=== PATIENT | female | born 1995 | race Caucasian/White ===

== ENCOUNTER → 2020-04-14 13:27 | Outpatient (BNVA) | payer SELFPAY | PROVIDERS: Family Provider Nurse Practitioner Women's Health; PCP Nurse Practitioner Women's Health; Visit Provider Nurse Practitioner Women's Health | DX: E28.2 Polycystic ovarian syndrome (principal) | CPT/HCPCS: 84144 ==

== ENCOUNTER → 2020-04-27 08:44 | Outpatient (BNVA) | payer SELFPAY | PROVIDERS: Family Provider Nurse Practitioner Women's Health; PCP Nurse Practitioner Women's Health; Visit Provider Nurse Practitioner Women's Health | DX: Z32.00 Encounter for pregnancy test, result unknown (principal) | CPT/HCPCS: 84702 ==

== ENCOUNTER → 2020-05-17 14:00 | Outpatient (BNVA) | payer SELFPAY | PROVIDERS: Family Provider Nurse Practitioner Women's Health; PCP Nurse Practitioner Women's Health; Visit Provider Nurse Practitioner Women's Health | DX: E28.2 Polycystic ovarian syndrome (principal) | CPT/HCPCS: 84144 ==

== ENCOUNTER 2020-06-01 07:56 | Outpatient (CLI) | payer SELFPAY ==
--- NOTE | 2020-06-01 08:00 | FL_ITS ---
WS: [id number] HYSTEROSALPINGOGRAM The cervical opening was cannulated by the professor of fine art. Then under fluoroscopic guidance, water-solu ble contrast was injected in a retrograde fashion. CLINICAL INFORMATION: E28.2 Polycystic ovarian syndrome COMPARISON: None. FINDINGS: The uterus fills normally, with no evidence of contour abnormality, filling defect, septum, stricture , mass, or bicornuate configuration. The bilateral uterine tubes are normal and patent with normal ra pid spillage of contrast into the peritoneum. FLUOROSCOPY TIME: 0.2 minutes. FL/FL hysterosalpingography [id number] IMPRESSION: Normal hysterosalpingogram.
[2020-06-01] MEDS: iohexol 300 mg/mL 50 mL Btl VAGINAL (08:32)
--- NOTE | 2020-06-01 15:27 | PM.ACPR ---
Procedure/Consent Procedure Narrative: Radiologic procedure Date of procedure: 06/01/2020 Date of dictation: 06/01/2020 Procedural diagnosis: Infertility Procedure done: Placement of hysterosalpingogram catheter Physician: Dr. Carmita Obando Anesthesia: None Indication: To assess patency of fallopian tubes Complications: None, patient tolerated the procedure well PROCEDURE: The procedure was explained to the patient and verbal consent provided. Sterile speculum was placed in the vagina and the cervix was prepped with Betadine. The cervix was grasped with a single-tooth tenaculum. Using Omnipaque dye, the HSG catheter was primed. The catheter was inserted into the cervix and the speculum was removed. Fluoroscopy was performed by the radiologist. Omnipaque dye was injected into the endometrial cavity with normal filling of the cavity. Bilateral tubes appeared normal caliber with immediate spill of dye bilaterally. The tenaculum and catheter were removed. Patient tolerated the procedure well. Please see separate radiologist report for final interpretation. Followup appointment: She is to followup at her next scheduled appointment
== END 2020-06-01 07:57 | disposition home or self-care (01) ==
LOC: RAD 07:57
PROVIDERS: PCP Nurse Practitioner Women's Health; Visit Provider Obstetrics & Gynecology
DX: E28.2 Polycystic ovarian syndrome (principal)
CPT/HCPCS: 12345; 74740

== ENCOUNTER → 2020-06-15 09:56 | Outpatient (BNVA) | payer SELFPAY | PROVIDERS: PCP Nurse Practitioner Women's Health; Visit Provider Obstetrics & Gynecology | DX: E28.2 Polycystic ovarian syndrome (principal) | CPT/HCPCS: 84144 ==

== ENCOUNTER → 2020-07-15 10:20 | Outpatient (BNVA) | payer SELFPAY | PROVIDERS: PCP Nurse Practitioner Women's Health; Visit Provider Obstetrics & Gynecology | DX: E28.2 Polycystic ovarian syndrome (principal) | CPT/HCPCS: 84144 ==

== ENCOUNTER → 2020-09-13 11:48 | Outpatient (BNVA) | payer SELFPAY | PROVIDERS: PCP Nurse Practitioner Women's Health; Visit Provider Obstetrics & Gynecology | DX: R10.9 Unspecified abdominal pain (principal) | CPT/HCPCS: 81000 ==

== ENCOUNTER → 2020-09-17 11:55 | Outpatient (BNVA) | payer SELFPAY | PROVIDERS: PCP Nurse Practitioner Women's Health; Visit Provider Obstetrics & Gynecology | DX: E28.2 Polycystic ovarian syndrome (principal) | CPT/HCPCS: 84144 ==

== ENCOUNTER → 2020-10-18 16:00 | Outpatient (BNVA) | payer SELFPAY | PROVIDERS: PCP Nurse Practitioner Women's Health; Visit Provider Obstetrics & Gynecology | DX: E28.2 Polycystic ovarian syndrome (principal) | CPT/HCPCS: 84144 ==

== ENCOUNTER → 2020-11-03 08:15 | Outpatient (BNVA) | payer SELFPAY | PROVIDERS: PCP Nurse Practitioner Women's Health; Visit Provider Obstetrics & Gynecology | DX: Z34.90 Encounter for supervision of normal pregnancy, unspecified, unspecified trimester (principal) | CPT/HCPCS: 84702 ==

== ENCOUNTER → 2020-12-08 08:48 | Outpatient (BNVA) | payer MEDICAID, SELFPAY | PROVIDERS: PCP Nurse Practitioner Women's Health; Visit Provider Obstetrics & Gynecology | DX: Z34.01 Encounter for supervision of normal first pregnancy, first trimester (principal); E28.2 Polycystic ovarian syndrome | CPT/HCPCS: 80307; 81000; 82950; 85027; 86592; 86762; 86787; 86803; 86850; 86900; 87086; 87340; 87389; 87806 ==

== ENCOUNTER → 2020-12-21 09:14 | Outpatient (BNVA) | payer MEDICAID, SELFPAY | PROVIDERS: PCP Nurse Practitioner Women's Health; Visit Provider Obstetrics & Gynecology | DX: Z34.01 Encounter for supervision of normal first pregnancy, first trimester (principal); Z28.3 Underimmunization status; E28.2 Polycystic ovarian syndrome | CPT/HCPCS: 84315; 87491; 87591 ==

== ENCOUNTER → 2021-01-19 12:39 | Outpatient (BNVA) | payer OTHER, MEDICAID, SELFPAY | PROVIDERS: PCP Nurse Practitioner Women's Health; Visit Provider Obstetrics & Gynecology | DX: Z34.80 Encounter for supervision of other normal pregnancy, unspecified trimester (principal) | CPT/HCPCS: 81000 ==

== ENCOUNTER → 2021-04-18 09:58 | Outpatient (BNVA) | payer OTHER, MEDICAID, SELFPAY | PROVIDERS: PCP Nurse Practitioner Women's Health; Visit Provider Obstetrics & Gynecology | DX: Z34.90 Encounter for supervision of normal pregnancy, unspecified, unspecified trimester; Z28.3 Underimmunization status | CPT/HCPCS: 82950; 84315; 85027 ==

== ENCOUNTER 2021-04-20 22:19 | Outpatient (CLI) | payer OTHER, MEDICAID, SELFPAY ==
[2021-04-20 22:25] VITALS: BP 140/90; PULSE 117
[2021-04-20 22:43] VITALS: BP 118/73; PULSE 102
[2021-04-20 22:59] VITALS: BP 120/60; PULSE 102
[2021-04-20 23:01] VITALS: BMI 37.0
[2021-04-20 23:13] VITALS: BP 116/56; PULSE 97
[2021-04-20 23:28] VITALS: BP 122/65; PULSE 96
[2021-04-20 23:43] VITALS: BP 124/69; PULSE 93
[2021-04-21 00:04] LABS: Add Urine Microscopic? NO; Charge for UA Resulting for Rev
[2021-04-21 00:05] LABS: Basophils % 0.1 %; Eosinophils % 0.4 %; Hematocrit 32.1 % (37.0-47.0); Hemoglobin 10.5 g/dL (11.5-15.3); Lymphocytes # 2.6 10^3/uL (0.8-4.8); Mean Corpuscular HGB Conc 32.7 g/dL (30.0-36.0); Mean Corpuscular Hemoglobin 29.3 pg (28.0-34.0); Mean Corpuscular Volume 89.7 fl (81-99); Mean Platelet Volume 9.8 fL (7.4-10.4); Monocytes # 0.7 10^3/uL (0.2-0.9); Monocytes % 7.5 %; Neutrophils # 6.18 10^3/uL (1.8-7.7); Neutrophils % 64.6 %; Nucleated Red Blood Cells % 0 %; Platelet Count 196 10^3/cmm (130-400); Red Blood Count 3.58 10^6/uL (4.1-5.3); Red Cell Distribution Width 12.8 % (12.1-15.1); White Blood Count 9.6 10^3/uL (4.0-10.0)
[2021-04-21 00:07] LABS: Bilirubin Urine Neg (Negative); Blood Urine Neg (Negative); Glucose Urine UA 2+ (Normal); Ketones Urine 1+ (Negative); Leukocyte Esterase Urine Negative (Negative); Nitrate Urine Negative (Negative); Protein Urine Neg (Negative); Urine Appearance Clear (CLEAR); Urine Color Yellow (Yellow); Urobilinogen Urine Norm (Negative); pH Urine 7 (5-7)
[2021-04-21 00:13] VITALS: BP 111/59; PULSE 86
[2021-04-21 00:23] LABS: Urine Creatinine 67 mg/dL (28-217); Urine Protein Random 8 mg/dL
[2021-04-21 00:26] LABS: UPRO/UCREAT Ratio 0.12 mg/mg CR
[2021-04-21 00:28] VITALS: BP 113/59; PULSE 89
[2021-04-21 00:38] LABS: Alanine Aminotransferase < 5 U/L (0-33); Albumin Level 3.2 g/dL (3.5-5.2); Alkaline Phosphatase 90 IU/L (35-105); Anion Gap 12.7 (5-19); Aspartate Amino Transferase 8 U/L (0-32); Blood Urea Nitrogen 4 mg/dL (6-20); Calcium 8.8 mg/dL (8.5-10.5); Carbon Dioxide 22 mmol/L (22-29); Chloride 107 mmol/L (98-107); Globulin 2.8 g/dL (1.3-4.6); Glomerular Filtration Rate 268.9 mL/min (90-130); Glucose 118 mg/dL (65-115); Osmolality Calculated 284 mOsm/kg (285-295); Potassium 3.7 mmol/L (3.5-5.1); Sodium 138 mmol/L (136-145); Total Bilirubin 0.2 mg/dL (0.15-1.2); Uric Acid 3.2 mg/dL (2.4-5.7)
[2021-04-21 00:43] VITALS: BP 111/57; PULSE 85
[2021-04-21 00:58] VITALS: BP 109/64; PULSE 84
== END 2021-04-21 01:10 | disposition home or self-care (01) ==
LOC: OPOB 22:23 → OBGYN 22:23
PROVIDERS: PCP Nurse Practitioner Women's Health; Visit Provider Obstetrics & Gynecology
DX: O13.9 Gestational [pregnancy-induced] hypertension without significant proteinuria, unspecified trimester (principal); Z3A.00 Weeks of gestation of pregnancy not specified; H53.8 Other visual disturbances; R51.9 Headache, unspecified
CPT/HCPCS: 36415; 59025; 80053; 81003; 82570; 82951; 82952; 84156; 84550; 85025; 99211

== ENCOUNTER 2021-04-30 00:35 | Outpatient (CLI) | payer OTHER, MEDICAID, SELFPAY ==
[2021-04-30 00:50] VITALS: BP 119/74; PULSE 96
[2021-04-30 01:22] VITALS: BP 110/67; PULSE 110
[2021-04-30 01:28] VITALS: BP 110/67; PULSE 110
== END 2021-04-30 01:33 | disposition home or self-care (01) ==
LOC: OPOB 00:40 → OBGYN 00:41
PROVIDERS: PCP Nurse Practitioner Women's Health; Visit Provider Obstetrics & Gynecology
DX: O26.899 Other specified pregnancy related conditions, unspecified trimester (principal); Z3A.00 Weeks of gestation of pregnancy not specified; R10.10 Upper abdominal pain, unspecified
CPT/HCPCS: 59025; 99211

== ENCOUNTER → 2021-06-06 14:15 | Outpatient (BNVA) | payer OTHER, MEDICAID, SELFPAY | PROVIDERS: PCP Nurse Practitioner Women's Health; Visit Provider Obstetrics & Gynecology | DX: Z34.90 Encounter for supervision of normal pregnancy, unspecified, unspecified trimester (principal) | CPT/HCPCS: 84315; 87081 ==

== ENCOUNTER → 2021-06-21 08:13 | Outpatient (BNVA) | payer OTHER, MEDICAID, SELFPAY | PROVIDERS: PCP Nurse Practitioner Women's Health; Visit Provider Obstetrics & Gynecology | DX: Z34.90 Encounter for supervision of normal pregnancy, unspecified, unspecified trimester (principal) | CPT/HCPCS: 84315; 87635 ==

== ENCOUNTER 2021-06-23 13:00 | Inpatient (IN) | payer OTHER, MEDICAID, SELFPAY ==
[2021-06-22] VITALS (44 sets, daily range): BP systolic 124–171; BP diastolic 68–88; PULSE 90–123; TEMP 36.3; O2SAT 94–99; BMI 38.6
[2021-06-22 20:14] LABS: Basophils % 0.1 %; Eosinophils % 0.2 %; Hematocrit 36.7 % (37.0-47.0); Hemoglobin 11.8 g/dL (11.5-15.3); Lymphocytes # 2.2 10^3/uL (0.8-4.8); Lymphocytes % 19.4 %; Mean Corpuscular HGB Conc 32.2 g/dL (30.0-36.0); Mean Corpuscular Hemoglobin 28.6 pg (28.0-34.0); Mean Corpuscular Volume 89.1 fl (81-99); Mean Platelet Volume 11.2 fL (7.4-10.4); Monocytes # 0.6 10^3/uL (0.2-0.9); Neutrophils # 8.59 10^3/uL (1.8-7.7); Neutrophils % 74.9 %; Nucleated Red Blood Cells % 0 %; Platelet Count 214 10^3/cmm (130-400); Red Blood Count 4.12 10^6/uL (4.1-5.3); Red Cell Distribution Width 14.9 % (12.1-15.1); White Blood Count 11.5 10^3/uL (4.0-10.0)
[2021-06-22] MEDS: lactated ringers 1,000 ML 999 ML IV (20:15)
[2021-06-22 20:48] LABS: Glucose Point of Care 119 mg/dL (70-110)
--- NOTE | 2021-06-22 21:05 | P.HPUD_ITS ---
Labor & Delivery H&P Update Date of Procedure: June 22, 2021 Date H&P Performed: 06/21/21 H&P update information: I have reviewed H&P completed within last 30 days, I have examined patient prior to procedure, No changes to prior documentation and H&P is in [facility] EMR on date indicated Admission Diagnosis:
[2021-06-22] MEDS: oxytocin 30 UNIT/500 ML BAG IV (22:18)
[2021-06-22] MEDS: dextrose 5%-lactated ringers 1,000 ML 125 ML IV (22:19)
[2021-06-23] VITALS (193 sets, daily range): BP systolic 96–173; BP diastolic 46–106; PULSE 72–123; RESP 16–18; TEMP 36.2–36.9; O2SAT 89–100
[2021-06-23 01:05] LABS: Glucose Point of Care 101 mg/dL (70-110)
[2021-06-23] MEDS: dextrose 5%-lactated ringers 1,000 ML 125 ML IV ×2 (04:54→20:18)
[2021-06-23 05:08] LABS: Glucose Point of Care 110 mg/dL (70-110)
[2021-06-23 11:33] LABS: Glucose Point of Care 134 mg/dL (70-110)
[2021-06-23] MEDS: lactated ringers 1,000 ML 999 ML IV (13:52)
[2021-06-23 13:58] LABS: Glucose Point of Care 88 mg/dL (70-110)
[2021-06-23] MEDS: dextrose 5%-lactated ringers 1,000 ML 999 ML IV (14:30)
--- NOTE | 2021-06-23 15:03 | ANES.PAUD2 ---
Pre-Anesthetic Update Pre-Anesthetic Assessment: Date of Surgery/Procedure: 06/23/21 Any changes to Pre-Anesthetic Assessment?: No Labs Last 48hrs: Laboratory Results - last 48 hr 06/22/21 06/22/21 06/23/21 20:00 20:44 00:54 WBC 11.5 H RBC 4.12 Hgb 11.8 Hct 36.7 L MCV 89.1 MCH 28.6 MCHC 32.2 RDW 14.9 Plt Count 214 MPV 11.2 H Neut % (Auto) 74.9 Lymph % (Auto) 19.4 [place] % (Auto) 5.0 Eos % (Auto) 0.2 Baso % (Auto) 0.1 Neut # (Auto) 8.59 H Lymph # (Auto) 2.2 [place] # (Auto) 0.6 Eos # (Auto) 0.0 Baso # (Auto) 0.0 Nucleated RBC % (a uto) 0 Nucleated RBCs # 0.0 POC Glucose 119 H 101 06/23/21 06/23/21 06/23/21 04:54 11:16 13:30 WBC RBC Hgb Hct MCV MCH MCHC RDW Plt Count MPV Neut % (Auto) Lymph % (Auto) [place] % (Auto) Eos % (Auto) Baso % (Auto) Neut # (Auto) Lymph # (Auto) [place] # (Auto) Eos # (Auto) Baso # (Auto) Nucleated RBC % (a uto) Nucleated RBCs # POC Glucose 110 134 H 88 Vitals: Temperature 98.3 F 06/23/21 12:20 Temperature Source Oral 06/23/21 12:20 Pulse Rate 100 06/23/21 15:01 Respiratory Rate 18 06/23/21 12:20 Respiratory Effort Non-Labored 06/22/21 18:55 Respiratory Depth Normal 06/22/21 18:55 Respiratory Patter n 06/22/21 18:55 Blood Pressure 104/50 06/23/21 14:59 Pulse Oximetry 100 06/23/21 15:01 Oxygen Delivery Me thod 06/22/21 18:55 Exam: Pre-Anes Outpt Exam: alert, oriented x 3, clear to auscultation bilaterally and regular rate & rhythm Cardiac Studies: No Data to Display
--- NOTE | 2021-06-23 15:04 | P.ANES_ITS ---
Anesthesia Procedures Procedure/Date: 06/23/21 Epidural: Time Out Performed: Yes Consents Signed: Procedure Consent Consent: from patient, risks and benefits reviewed and patient agrees to proceed Lumbar Level: L4-L5 Epidural position: sitting Epidural procedure: sterile prep of area, 1% lidocaine to numb the area, 18 g needle, neg for parest hesia, test dose given, 1.5% xylocaine 1:200k epi, placed PCEA, no systemic response, sterile dressing applied and 0.2% Ropiavacaine @ mls/hr (13 mL/hr) Additional Comments: LORTS @ 9cm. Catheter advanced easily and secured @ 15 cm. 100 mcg Fentanyl added to 100 mL Ropivacaine infusion --> 1 mcg/mL.
[2021-06-23 15:17] LABS: Glucose Point of Care 115 mg/dL (70-110)
[2021-06-23 18:33] LABS: Glucose Point of Care 96 mg/dL (70-110)
[2021-06-23] MEDS: ondansetron 2 mg/ML SDV 2 mL 4 MG IVP (19:38)
--- NOTE | 2021-06-23 19:44 | PC.NURSE ---
FSE failing to trace, discontinued at this time. External monitors placed.
[2021-06-23 20:09] LABS: Glucose Point of Care 100 mg/dL (70-110)
--- NOTE | 2021-06-23 21:52 | PM.OBGYPN ---
LODE MINER Subjective Subjective: Interval history: I assumed care of this GDM on insulin currently being induced with pitocin d/t poor glycemic control at 1800. Pitocin turned off at 2000 for poor response and unchanged cervical status. Pt at this time is comfortable with her epidural and without complaints. Labor: Pain Control: epidural Dilation (cm): 4 Effacement (%): 50 Station: -3 Amniotic Membrane Status: Leaking (clear, large amount) Monitor Mode: Internal (IUPC) (placed without complication and with good pt tolerance) Contraction Frequency: 6 Contraction Duration: 60 Contraction Pattern: Irregular Contraction Intensity: Mild Uterine Tone Measurement: 30 Status: Category I Vitals/I&O/Wt Last Vital Signs Temp 98.5 F 06/24/21 08:40 Pulse 100 06/24/21 11:26 Resp 18 06/24/21 08:40 BP 115/61 06/24/21 11:26 Pulse Ox 100 06/23/21 15:16 06/23/21 06/24/21 06/24/21 22:59 06:59 14:59 Intake Total 970.603 / 2895.653 1100 / 3995.653 Output Total 1100 / 1100 700 / 1800 Balance -129.397 / 1795.653 400 / 2195.653 Weight last 48 hrs Weight 218 lb Physical Exam Narrative: EXAM NARRATIVE: SVE /-3 FHTs cat 1 Urinary Catheter Management^: [place]: Cath Placed During This Visit: yes Reason for Continuing Indwelling Catheter: Required Immobilization for Trauma or Surgery or Anesthesia Urinary Catheter Date of Insertion: 06/23/21 Urinary Catheter Time of Insertion: 15:10 Data : 06/22/21 20:00 A&P Assessment and plan (1) Gestational diabetes: cont fbs q 2 hrs with dosing and regular insulin as appropriate discontinue pitocin and give cytotec 25 q 4 hrs continue to moniter Status: Acute Qualifiers: Gestational diabetes mellitus control: insulin-controlled Trimester: third trimester Qualified Code(s): O24.414 - Gestational diabetes mellitus in , insulin controlled (2) Susceptible to varicella (non-immune), currently : vaccinate pp Status: Acute (3) Rubella non-immune status, antepartum: vaccinate pp Status: Acute (4) Clomid : Status: Acute Qualifiers: Trimester: third trimester Qualified Code(s): O09.03 - Supervision of with history of infertility, third trimester (5) Supervision of normal : Status: Acute Qualifiers: Normal : normal first Trimester: first trimester Qualified Code(s): Z34.01 - Encounter for supervision of normal first , first trimester Attestations Medical Necessity Statement*: with GDM on insulin currently being induced d/t poor glycemic control Coding Level of Care Code Acute Director Of Marketing [employer] for [facility] Fwd Diagnoses Gestational diabetes O24.414 Gestational diabetes mellitus control: insulin-controlled Trimester: third trimester Susceptible to varicella (non-immune), currently O09.899; Z28.3 Rubella non-immune status, antepartum O99.891; Z28.3 Clomid O09.03 Trimester: third trimester Supervision of normal Z34.01 Normal : normal first Trimester: first trimester
[2021-06-23] MEDS: miSOPROStol 100 mcg tablet 25 MCG PO (22:32)
[2021-06-23 22:45] LABS: Glucose Point of Care 106 mg/dL (70-110)
[2021-06-23] MEDS: calcium carbonate 500 mg Chew Tablet PO (22:49)
[2021-06-24] VITALS (76 sets, daily range): BP systolic 98–145; BP diastolic 48–101; PULSE 75–123; RESP 14–18; TEMP 36.1–37; O2SAT 95–99
[2021-06-24 00:51] LABS: Glucose Point of Care 107 mg/dL (70-110)
[2021-06-24] MEDS: miSOPROStol 100 mcg tablet 25 MCG PO (02:57)
[2021-06-24 03:11] LABS: Glucose Point of Care 113 mg/dL (70-110)
[2021-06-24] MEDS: dextrose 5%-lactated ringers 1,000 ML 125 ML IV ×2 (04:25→12:38)
[2021-06-24 04:32] LABS: Glucose Point of Care 102 mg/dL (70-110)
[2021-06-24 06:55] LABS: Glucose Point of Care 99 mg/dL (70-110)
[2021-06-24] MEDS: miSOPROStol 100 mcg tablet 25 MCG VAGINAL (08:36)
--- NOTE | 2021-06-24 10:35 | P.PN_ITS ---
LAST PUTTER AWAY Subjective Subjective: Interval history: Doing well, no complaints. Had third dose of cytotec at 0830. Blood sugar elevated at 163 2 hrs after breakfast. Otherwise bs have been within range. Labor: Station: -2 Amniotic Membrane Status: Leaking Monitor Mode: Internal (IUPC) Contraction Pattern: Irregular Uterine Tone Measurement: 10 Vitals/I&O/Wt Last Vital Signs Temp 98.5 F 06/24/21 08:40 Pulse 118 H 06/24/21 10:26 Resp 18 06/24/21 08:40 BP 111/66 06/24/21 10:26 Pulse Ox 100 06/23/21 15:16 06/23/21 06/24/21 06/24/21 22:59 06:59 14:59 Intake Total 970.603 / 2895.653 1100 / 3995.653 Output Total 1100 / 1100 700 / 1800 Balance -129.397 / 1795.653 400 / 2195.653 Weight last 48 hrs Weight 218 lb Physical Exam Narrative: EXAM NARRATIVE: SVE per nursing at 0830 4cm/60%/-2 VTX with clear fluid. FHT's Cat 1 with 140's baseline. Ctn q 4-6 min 25-35 mmHg via IUPC rashaun precious last night Urinary Catheter Management^: [place]: Cath Placed During This Visit: yes Reason for Continuing Indwelling Catheter: Required Immobilization for Trauma or Surgery or Anesthesia Urinary Catheter Date of Insertion: 06/23/21 Urinary Catheter Time of Insertion: 15:10 Data : 06/22/21 20:00 A&P Assessment and plan (1) Gestational diabetes: continue to check bs q 2 hrs and dose with regular insulin as appropriate Status: Acute Qualifiers: Gestational diabetes mellitus control: insulin-controlled Trimester: third trimester Qualified Code(s): O24.414 - Gestational diabetes mellitus in , insulin controlled (2) Susceptible to varicella (non-immune), currently : Vaccinate Status: Acute (3) Rubella non-immune status, antepartum: vaccinate Status: Acute (4) Clomid : Status: Acute Qualifiers: Trimester: third trimester Qualified Code(s): O09.03 - Supervision of with history of infertility, third trimester (5) Supervision of normal : Status: Acute Qualifiers: Normal : normal first Trimester: first trimester Qualified Code(s): Z34.01 - Encounter for supervision of normal first , first trimester Additional A&P Information Plan to recheck cervix at 1230 and restart pitocin at 2 miu, double to 8miu and then up by 2miu q 30 min Questions answered and both parents agree with POC Attestations Medical Necessity Statement*: induction for GDM on insulin not well controlled Coding Level of Care Code Acute Business Relationship Manager for Chg Fwd Diagnoses Gestational diabetes O24.414 Gestational diabetes mellitus control: insulin-controlled Trimester: third trimester Susceptible to varicella (non-immune), currently O09.899; Z28.3 Rubella non-immune status, antepartum O99.891; Z28.3 Clomid O09.03 Trimester: third trimester Supervision of normal Z34.01 Normal : normal first Trimester: first trimester
[2021-06-24 10:37] LABS: Glucose Point of Care 160 mg/dL (70-110)
[2021-06-24] MEDS: insulin nph human 100 units/1 mL 6 UNIT SUBCUT (11:04)
[2021-06-24] MEDS: acetaminophen 325 mg Tablet 650 MG PO (12:42)
[2021-06-24] MEDS: ondansetron 2 mg/ML SDV 2 mL 4 MG IVP (12:42)
[2021-06-24 13:16] LABS: Glucose Point of Care 96 mg/dL (70-110)
[2021-06-24 16:42] LABS: Glucose Point of Care 98 mg/dL (70-110)
[2021-06-24] MEDS: metoclopramide 5 mg/mL SDV 2 mL 10 MG IVP (17:44)
[2021-06-24] MEDS: famotidine 20 mg/2 mL INJ IVP (17:44)
[2021-06-24] MEDS: lactated ringers 1,000 ML 999 ML IV (17:44)
[2021-06-24] MEDS: citric acid-sodium citrate 30 mL UDC PO (17:44)
[2021-06-24] MEDS: azithromycin 500 MG in sodium chloride 0.9% 250 ML 250 MG IV (18:01)
--- NOTE | 2021-06-24 20:08 | PM.OP ---
Operative Report Date of procedure: June 24, 2021 Pre-operative diagnosis: 38 wk IUP, GDM not well controlled, Prolonged ROM, Failed induction Post-operative Diagnosis: same Procedure: Primary Low Cervical Transverse Section Surgeon: Yasmine Ayon D.O. EBL: 500 ml. Anesthesia: epidural Findings: viable male Pathology: none Procedure: After obtaining informed consent and answering all questions, Pt was taken to the operating room and placed in a supine position with a left lateral tilt. Epidural was bolused and she was prepped and draped in a sterile fashion. Indwelling elliott catheter was noted to be draining to gravity and plexipulses were on for vte prophylaxis. Level of the anesthesia was checked and deemed adequate. Scalpel blade was used to make a low pfannenstial incision two finger breadths above the pubic bone. This was carried down sharply to the rectus fascia. The subcutaneous tissue was bluntly dissected free of the fascia and the fascial incision was extended sharply with perez scissors in a lateral fashion. The fascia was freed from the underlying rectus muscle with perez scissors and bluntly in the midline. The peritoneum was bluntly entered and the bladder blade placed. A low transverse incision was made with a scalpel blade in the lower uterine segment until membranes were encountered, rupturing them with a return of clear fluid. The lower uterine segment incision was extended bluntly in a lateral fashion and the bladder blade removed. The vertex was delivered atraumatically. Baby boy cried on the operative field and was noted to be vigorous. Nose and mouth were suctioned superficially and the cord was clamped x 2 and cut, passing the baby off to nursery [facility]. The placenta was manually expressed and passed off the field. The uterus was exteriorized and wiped clear of debris with an open wet lap sponge. The hysterotomy was closed in a double layer with 0-vicryl in a running locking and then imbrucating fashion. Noting it to be hemostatic, the uterus was placed back in anatomic position and the posterior and lateral gutters were cleared of debris. The hysterotomy was hemostatic upon reinspection. The peritoneum was grossly reapproximated. The rectus muscle was hemostatic. The fascia was closed with 0-vicryl in a running fashion. The subcutaneous tissue was irrigated with normal saline, noted to be hemostatic, and closed with 2-0-plain gut in a running fashion. Skin was closed with 3-0-vicryl subcutaneously. Steristrips and sterile dressing were placed. Pt tolerated the procedure well and was taken to the recovery room with her baby. Both mom and baby were in stable condition.
--- NOTE | 2021-06-24 21:29 | PC.NURSE ---
Fundus right of midline. Due to positioning of elliott catheter in stat lock, not draining well. Stat lock released, urine began draining well. Fundus midline after bladder drained.
[2021-06-24] MEDS: oxyCODONE-APAP 5-325 mg Tablet PO (21:50)
[2021-06-25] VITALS (10 sets, daily range): BP systolic 106–131; BP diastolic 68–86; PULSE 97–133; RESP 15–18; TEMP 37.1–37.3; O2SAT 96–98
--- NOTE | 2021-06-25 00:25 | PC.NURSE ---
While RN in room administering glucose gel to , patient reports passing gas 2 times. Once while RN in room, and once before RN came into room.
[2021-06-25] MEDS: ketorolac 30 mg/mL INJ IVP (01:10)
--- NOTE | 2021-06-25 03:56 | PC.NURSE ---
Patient up to chair at 0120 and patient remains in the chair at this time. Tolerating well.
--- NOTE | 2021-06-25 06:41 | PC.NURSE ---
Patient up with RN to walk at 0510. Patient completed 4 laps and walked to nursery with significant other for infants bath. Patient tolerated very well.
[2021-06-25] MEDS: oxyCODONE-APAP 5-325 mg Tablet PO ×3 (06:48→19:56)
--- NOTE | 2021-06-25 08:01 | ANE.PACU2 ---
Inpatient post-anesthesia follow up: Airway intact: Yes Vital signs: Temperature 98.9 F Pulse Rate 133 Respiratory Rate 17 Blood Pressure 124/79 Pulse Oximetry 98 Oxygen Delivery Me thod Room Air Oxygen Flow Rate Fraction of Inspir ed Oxygen Hydration adequate: Yes Nausea and vomiting: No Pain level: 2 Mental status: Baseline
[2021-06-25 08:31] LABS: Hematocrit 29.3 % (37.0-47.0); Hemoglobin 9.2 g/dL (11.5-15.3); Mean Corpuscular HGB Conc 31.4 g/dL (30.0-36.0); Mean Corpuscular Hemoglobin 28.2 pg (28.0-34.0); Mean Corpuscular Volume 89.9 fl (81-99); Mean Platelet Volume 10.9 fL (7.4-10.4); Platelet Count 185 10^3/cmm (130-400); Red Blood Count 3.26 10^6/uL (4.1-5.3); Red Cell Distribution Width 14.3 % (12.1-15.1); White Blood Count 12.8 10^3/uL (4.0-10.0)
[2021-06-25] MEDS: ibuprofen 800 mg tablet PO ×3 (09:09→21:59)
[2021-06-25] MEDS: lanolin oint 7 gm 1 APPLIC TOPICAL (09:09)
[2021-06-25] MEDS: docusate sodium 100 mg Capsule PO ×2 (09:09→18:28)
[2021-06-25] MEDS: prenatal vitamin Capsule 1 CAP PO (09:10)
--- NOTE | 2021-06-25 12:59 | PM.OBGYPN ---
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 S/p primary unplanned c/s for prolonged ROM and failed induction, remote from delivery. Complications of were GDM on insulin not well controlled. Labor: Dilation (cm): 4 Effacement (%): 50 Station: -3 Amniotic Membrane Status: Leaking (clear, large amount) Monitor Mode: Internal (IUPC) Contraction Frequency: 6 Contraction Pattern: Regular Contraction Intensity: Mild Uterine Tone Measurement: 25 Status: Category I Vitals/I&O/Wt Last Vital Signs Temp 98.7 F 06/25/21 10:00 Pulse 118 H 06/25/21 10:00 Resp 16 06/25/21 10:00 BP 131/86 06/25/21 10:00 Pulse Ox 96 06/25/21 10:00 06/24/21 06/25/21 06/25/21 22:59 06:59 14:59 Intake Total 919.667 / 2027.000 500 / 2527.000 200 / 200 Output Total 2800 / 2800 1300 / 4100 420 / 420 Balance -1880.333 / -773.000 -800 / -1573.000 -220 / -220 Physical Exam Const: COMMON NORMALS: no acute distress and patient oriented x3 GENERAL APPEARANCE: cooperative and comfortable HENMT: COMMON NORMALS: normocephalic and moist oral mucous membranes HEAD & SCALP: normocephalic Resp: COMMON NORMALS: normal respiratory effort and No retractions EFFORT & INSPECTION: Yes able to speak in complete sentences Cardio: COMMON NORMALS: regular rhythm RATE: tachycardic (113) RHYTHM: regular rhythm : EXTERNAL FEMALE EXAM: Yes other (normal moderate lochia) Extremity: COMMON NORMALS: normal to inspection and full ROM GENERAL: Yes edema (mild bilateral le nonpitting) Neuro: COMMON NORMALS: patient oriented x3 Urinary Catheter Management^: [place]: Cath Placed During This Visit: yes, but has since been removed by the nurse Urethral Indwelling: No Reason for Continuing Indwelling Catheter: Decision to DC Catheter Urinary Catheter Date of Insertion: 06/23/21 Urinary Catheter Time of Insertion: 15:10 Date Urinary Catheter Removed: 06/25/21 Time Urinary Catheter Discontinued: 05:17 Data : 06/25/21 07:50 A&P Assessment and plan (1) Status post primary low transverse section: increase ambulation and remove dressing Status: Acute (2) Gestational diabetes: fasting blood sugar in am Status: Acute Qualifiers: Gestational diabetes mellitus control: insulin-controlled Trimester: third trimester Qualified Code(s): O24.414 - Gestational diabetes mellitus in , insulin controlled (3) Susceptible to varicella (non-immune), currently : vaccinate prior to discharge Status: Acute (4) Rubella non-immune status, antepartum: vaccinate prior to discharge Status: Acute (5) Clomid : Status: Acute Qualifiers: Trimester: third trimester Qualified Code(s): O09.03 - Supervision of with history of infertility, third trimester Attestations Medical Necessity Statement*: postoperative day 1 s/p primary Coding Level of Care Code Acute Family Mediator for Chg Fwd Diagnoses Status post primary low transverse section Z98.891 Gestational diabetes O24.414 Gestational diabetes mellitus control: insulin-controlled Trimester: third trimester Susceptible to varicella (non-immune), currently O09.899; Z28.3 Rubella non-immune status, antepartum O99.891; Z28.3 Clomid O09.03 Trimester: third trimester
--- NOTE | 2021-06-25 19:35 | PC.NURSE ---
JESSE tracker charting documented under Dr. Cast due to Dr. Urrutia not being in the list of performing physicians. Moriah Hart, RN Animation Artist notified of this issue.
[2021-06-26] VITALS (8 sets, daily range): BP systolic 96–140; BP diastolic 64–85; PULSE 88–106; RESP 16–18; TEMP 36.6–36.7; O2SAT 97
[2021-06-26] MEDS: oxyCODONE-APAP 5-325 mg Tablet PO ×4 (01:04→20:23)
[2021-06-26] MEDS: prenatal vitamin Capsule 1 CAP PO (07:44)
[2021-06-26] MEDS: ibuprofen 800 mg tablet PO ×3 (09:21→20:23)
[2021-06-26] MEDS: docusate sodium 100 mg Capsule PO ×2 (09:21→18:32)
--- NOTE | 2021-06-26 12:44 | P.PN_ITS ---
CONE BAKER MACHINE Subjective Subjective: Interval history: s/p primary c/s POD#2 doing well. ok, still needing help from nursing. Pain controlled and was able to sleep last night. Labor: Dilation (cm): 4 Effacement (%): 50 Station: -3 Amniotic Membrane Status: Leaking (clear, large amount) Monitor Mode: Internal (IUPC) Contraction Frequency: 6 Contraction Pattern: Regular Contraction Intensity: Mild Uterine Tone Measurement: 25 Status: Category I Post /CS: Patient comments OB post-: tolerating diet and flatus present [place] feeding status: exclusively breast feeding Vitals/I&O/Wt Last Vital Signs Temp 98.7 F 06/25/21 16:18 Pulse 88 06/26/21 04:08 Resp 18 06/26/21 07:44 BP 96/64 06/26/21 04:08 Pulse Ox 97 06/26/21 04:08 06/25/21 06/26/21 06/26/21 22:59 06:59 14:59 Output Total 520 / 940 Balance -520 / -740 Physical Exam Narrative: EXAM NARRATIVE: alert and no distress Const: GENERAL APPEARANCE: cooperative and comfortable ORIENTATIO N/CONSCIOUSNESS: Yes awake, Yes oriented to person, Yes oriented to place and Yes oriented to time HENMT: COMMON NORMALS: normocephalic HEAD & SCALP: normocephalic Eye: COMMON NORMALS: conjunctivae normal and no scleral icterus CONJUNCTIVA: Yes conjunctivae normal Neck/C-Spine: COMMON NORMALS: no JVD Lymph: LYMPHATIC: no lymphadenopathy noted Resp: COMMON NORMALS: normal respiratory effort and No use of accessory muscles EFFORT & INSPECTION: Yes able to speak in complete sentences Cardio: COMMON NORMALS: no JVD, regular rate and regular rhythm RATE: regular rate RHYTHM: regular rhythm GI: COMMON NORMALS: Soft to palpation and non-tender INSPECTION: Yes incision Inspection of incision: healing well and drainage (scant serosanguinous dried at the midline) PALPATION: Yes Soft to palpation : COMMON NORMALS: Yes normal appearance of the vagina UTERUS PALPATION: Yes Other OB uterine findings (uterus involuting well and nontender 2 fb below u. Lochia small.) Neuro: SENSORIUM/ORIENTATION: Yes oriented to person, Yes oriented to place and Yes oriented to time Psych: COMMON NORMALS: mental status grossly normal, Normal thought process present, cooperative and normal affect ATTITUDE: Yes calm and Yes engaged THOUGHT PROCESS: Normal thought process present Urinary Catheter Management^: [place]: Cath Placed During This Visit: yes, but has since been removed by the nurse Urethral Indwelling: No Reason for Continuing Indwelling Catheter: Decision to DC Catheter Urinary Catheter Date of Insertion: 06/23/21 Urinary Catheter Time of Insertion: 15:10 Date Urinary Catheter Removed: 06/25/21 Time Urinary Catheter Discontinued: 05:17 Data : 06/25/21 07:50 Attestations Medical Necessity Statement*: postoperative day 2 following primary C/S. Plan discharge tomorrow. Coding Level of Care Code Acute Vamp Stitcher for Dante Martinez
--- NOTE | 2021-06-26 13:53 | PC.NURSE ---
IS Pt given incentive spirometer and given instructions on how to use it. Pt. demonstrated correctly.
[2021-06-27 01:39] VITALS: RESP 16
[2021-06-27] MEDS: oxyCODONE-APAP 5-325 mg Tablet PO ×2 (01:39→07:37)
[2021-06-27 03:55] VITALS: BP 142/82; PULSE 102; RESP 16
[2021-06-27 04:07] VITALS: BP 130/80; RESP 16
[2021-06-27 07:37] VITALS: RESP 18
[2021-06-27] MEDS: prenatal vitamin Capsule 1 CAP PO (09:13)
[2021-06-27] MEDS: docusate sodium 100 mg Capsule PO (09:13)
[2021-06-27] MEDS: ibuprofen 800 mg tablet PO (09:13)
--- NOTE | 2021-06-27 09:13 | P.DS_ITS ---
Discharge Providers SECURITY PROFESSIONAL Date of Admission: 06/23/21 13:00 Date of Discharge: 06/27/21 Attending Provider at Admission: Carmita Kendall MD Attending Provider at Discharge: Carmita Kendall MD Primary Care Provider: SAUL Coy Diagnoses at Discharge Discharge Diagnosis (1) Status post primary low transverse section: Status: Acute Permanent problem details: pod#3 (2) Gestational diabetes: Status: Acute Permanent problem details: needs 2 hr GCT at 6 weeks pp Qualifiers: Gestational diabetes mellitus control: insulin-controlled Trimester: third trimester Qualified Code(s): O24.414 - Gestational diabetes mellitus in , insulin controlled (3) Susceptible to varicella (non-immune), currently : Status: Acute Permanent problem details: will instruct pt to go to the health department for vaccination (4) Rubella non-immune status, antepartum: Status: Acute Permanent problem details: vaccinate prior to discharge (5) Clomid : Status: Resolved Qualifiers: Trimester: third trimester Qualified Code(s): O09.03 - Supervision of with history of infertility, third trimester Reason for Visit Reason for Visit: induction of labor Hospital Course Hospital Course Admitted for induction at 38 weeks gestation for GDM on insulin not well controlled. She failed induction after pitocin with AROM, cytotec and pitocin again. Underwent primary c/s without complication for failed induction, p rolonged rom and remote from delivery. Pts postoperative course was uneventful and she was discharged in stable condition on POD#3. well and baby boy discharged home with mom. Vaccinated for rhubella prior to discharge and instructed to go to health department for varicella vaccination. Information Peripartum Data: Infant Delivery Method: Physical Exam Narrative: EXAM NARRATIVE: pain controlled, without complaints Const: COMMON NORMALS: no acute distress, patient oriented x3 and alert HENMT: COMMON NORMALS: normocephalic and moist oral mucous membranes HEAD & SCALP: normocephalic Eye: COMMON NORMALS: EOMs intact bilaterally, conjunctivae normal and no scleral icterus CONJUNCTIVA: Yes conjunctivae normal Neck/C-Spine: COMMON NORMALS: no JVD Lymph: LYMPHATIC: no lymphadenopathy noted Resp: COMMON NORMALS: normal respiratory effort and No retractions EFFORT & INSPECTION: Yes able to speak in complete sentences Cardio: COMMON NORMALS: no JVD and regular rate RATE: regular rate GI: COMMON NORMALS: Soft to palpation and non-tender INSPECTION: Yes incision Inspection of incision: healing well PALPATION: Yes Soft to palpation : EXTERNAL FEMALE EXAM: Yes other (small lochia) Extremity: COMMON NORMALS: normal to inspection and full ROM RIGHT LOWER EXTREMITY: Yes lower leg (mild nonpitting edema) LEFT LOWER EXTREMITY: Yes lower leg (mild nonpitting edema) Neuro: COMMON NORMALS: patient oriented x3 SENSORIUM/ORIENTATION: Yes alert Psych: COMMON NORMALS: mental status grossly normal, cooperative, normal affect and speech normal SPEECH: Yes normal speech Urinary Catheter Management^: [place]: Cath Placed During This Visit: yes, but has since been removed by the nurse Urethral Indwelling: No Reason for Continuing Indwelling Catheter: Decision to DC Catheter Urinary Catheter Date of Insertion: 06/23/21 Urinary Catheter Time of Insertion: 15:10 Date Urinary Catheter Removed: 06/25/21 Time Urinary Catheter Discontinued: 05:17 History History History 1 Term Miscarriages/Ectopic Living Children 0 Discharge Data Procedures Performed: primary low transverse section on 06/24/21 Vitals: Last Vital Signs Temp 98.0 F 06/26/21 23:00 Pulse 102 H 06/27/21 03:55 Resp 18 06/27/21 07:37 BP 130/80 06/27/21 04:07 Pulse Ox 97 06/26/21 04:08 Discharge Plan Discharge Patient Disposition: Home Condition: Stable Prescriptions: New oxycodone-acetaminophen 5-325 mg Tablet 1 - 2 tab PO Q4H PRN (Reason: Moderate To Severe Pain) Qty: 28 RF: 0 docusate sodium 100 mg Capsule 100 mg PO BID Qty: 60 RF: 0 Lanolin (HPA) 100 % Cream 1 applic topical PRN PRN (Reason: breast care) Qty: 7 RF: 0 ibuprofen 800 mg Tablet 800 mg PO TID Qty: 60 RF: 0 Discontinued Humulin N NPH Insulin KwikPen 100 unit/mL (3 mL) insulin pen 10 unit SUBCUT .QHS RF: 0 prenat.vits,rosanna,lft-rjjn-hulzg Tablet 1 tab PO DAILY RF: 0 (DME) blood-glucose meter [Blood Glucose Monitoring] Kit See Rx Instructions .Route Qty: 1 RF: 0 (DME) lancets-blood glucose strips 30 gauge combo pack See Rx Instructions .Route Qty: 420 RF: 6 Discharge Orders: Discharge Order (Routine); Ordered 06/27/21 Ordered By: Yasmine Ayon Referrals: Carmita Kendall MD [Physician] - 2 weeks Discharge Diet: Regular Discharge Activity: Limit activity as instructed Patient Instructions: Depression (DC), Your Baby (DC), and Nipple Soreness (DC), and Plugged Ducts (DC), and Your Diet (DC), Preeclampsia and Eclampsia After Delivery (GEN), Breast Care for the Mother (DC), OB WHC, OB Discharge Report, OB Care at Home, Opioid Safety, OB Home Care Activity Restrictions/Additional Instructions: no lifting more than baby in the car seat*Nothing per vagina x6 weeks *Reference vaginal delivery care notes. Discharge Attestations SECURITY PROFESSIONAL Time Spent in Discharge Care*: less than 30 min Specific Discharge Activities: Specific discharge activities: educating patient, educating and/or supporting family/caregiver and documenting/other paperwork Status at Discharge: Cognitive status at discharge: cognitively intact , Behavioral status at discharge: cooperative , Functional status at discharge: independent ambulation Overall status at discharge: patient is progressing back to baseline Coding Level of Care Code Acute Airline Counter Agent for Chg Fwd Diagnoses Status post primary low transverse section Z98.891 Gestational diabetes O24.414 Gestational diabetes mellitus control: insulin-controlled Trimester: third trimester Susceptible to varicella (non-immune), currently O09.899; Z28.3 Rubella non-immune status, antepartum O99.891; Z28.3 Clomid O09.03 Trimester: third trimester
[2021-06-27] MEDS: measles,mumps,rubella pf Vial (w/diluent) 0.5 ML SUBCUT (10:35)
--- NOTE | 2021-06-27 11:00 | PC.NURSE ---
MMR and Varicella Vaccine Patient signed MMR vaccination consent form and agreed to receive vaccine. Patient then declined vaccine and requested to wait a week or two and obtain MMR and Varicella immunizations through health department. This nurse discussed importance of receiving immunizations during period. Patient reported she would receive vaccines, just not at this time. This nurse wasted MMR vaccine.
[2021-06-27 12:00] VITALS: BP 146/90; PULSE 97; RESP 18; TEMP 36.8; O2SAT 99
== END 2021-06-27 11:15 | disposition home or self-care (01) | DRG 788 ==
PROVIDERS: Obstetrics & Gynecology; Admitting Provider Obstetrics & Gynecology; PCP Nurse Practitioner Women's Health; Visit Provider Obstetrics & Gynecology
PROC: (CPT 59514; principal; 2021-06-24 18:15)
DX: O61.0 Failed medical induction of labor (principal); O24.424 Gestational diabetes mellitus in childbirth, insulin controlled; Z3A.38 38 weeks gestation of pregnancy; Z37.0 Single live birth
CPT/HCPCS: 12345; 36415; 36416; 51702; 82962; 85025; 85027; 90707; 96372; J0456; J0690; J1815; J1885; J2274; J2370; J2405; J2765; J2795; J3010; J3490; J7030; J7050

== ENCOUNTER 2021-07-01 15:08 | Emergency (ER) | payer OTHER, MEDICAID, SELFPAY ==
[2021-07-01 15:41] VITALS: BP 167/112; PULSE 79; RESP 16; TEMP 36.8; O2SAT 100; BMI 35.6
--- NOTE | 2021-07-01 16:12 | XRR_ITS ---
PROCEDURE INFORMATION: Exam: XR Chest Exam date and time: 07/01/2021 4:12 PM Age: 25 years old Clinical indication: Cough and dyspnea; Additional info: Dyspnea/cough TECHNIQUE: Imaging protocol: XR of the chest. Views: 1 view. COMPARISON: No relevant prior studies available. FINDINGS: Lungs: Unremarkable. No consolidation. Pleural spaces: Unremarkable. No pleural effusion. No pneumothorax. Heart/Mediastinum: Borderline cardiomegaly. Bones/joints: Unremarkable. XR/XR chest 1V portable [id number] IMPRESSION: Borderline cardiomegaly. Radiation Dose CTDIVOL = (mGy): DLP = (mGy-cm)
--- NOTE | 2021-07-01 16:12 | ECG_ITS ---
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: : 1995 Requested By: Keanu Em Order Number: [id number] Emma MD: NEREYDA PALACIOS Measurements Intervals [place] Rate: 68 P: 30 MA: 146 QRS: 9 QRSD: 101 T: 31 QT: 380 QTc: 406 Interpretive Statements SINUS RHYTHM WITH SINUS ARRHYTHMIA INCOMPLETE RIGHT BUNDLE BRANCH BLOCK [90+ ms QRS DURATION, TERMINAL R IN V1/V2, 40+ ms S IN I/aVL/V4/V5/V6] VOLTAGE CRITERIA FOR LVH [MEETS CRITERIA IN ONE OF: R(aVL), S(V1), R(V5), R(V5/V6)+S(V1)] No previous ECG available for comparison Electronically Signed On 07-01-2021 23:56:57 CDT by NEREYDA PALACIOS [id number] f
--- NOTE | 2021-07-01 16:13 | W.ED.GENADLT ---
Documented by User: Keanu Horowitz DO 07/07/21 10:27 HPI - General Adult General: Chief complaint: General Medical Stated complaint: HTN: 1 WK AGO Time Seen by Provider: 07/01/21 15:45 History of Present Illness: HPI narrative: 25-year-old female presents emergency room with elevated blood pressure. Blood pressures at home within the 160s systolic range. 1 week ago she had a . She did have gestational diabetes which was treated with insulin but she did not have any gestational hypertension she has been taking ibuprofen postoperatively for pain. She has had some headaches and scotomata as well. Onset (ago): hour(s) Location: head Radiation: non-radiation Severity: mild Quality: aching Relieving factors: none Exacerbating factors: none Associated symptoms: Reports malaise and nausea; Deny chest pain, confusion, cough, diaphoresis, decreased appetite, dyspnea, fevers/chills, headache(s), rash, palpitations, seizures, short of breath, syncope, vomiting or weakness Treatments prior to arrival: none Review of Systems Const: Reports: malaise; Denies: diaphoresis ENMT: Denies: throat pain, ear or mastoid pain, nasal discharge or nasal congestion Card: Denies: chest pain, palpitations or syncope Resp: Denies: dyspnea GI: Reports: nausea; Denies: vomiting : Denies: flank pain, difficulty voiding, dysuria, urinary frequency or urinary urgency Skin/Breast: Denies: rash Neuro: Denies: headache(s) or confusion PFSH ED PFSH: Medical History Infertility 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 PMD: none PCOS (polycystic ovarian syndrome) Diagnosed at the age of 22 based on irregular cycles and signs of elevated testosterone Surgical History No history of previous surgery Family History Grandmother Stroke Paternal Heart disease paternal Denies family history of Colon cancer Ovarian cancer Diabetes Hyperlipidemia Breast cancer Hypertension Uterine cancer Thyroid condition Physical Exam Const: COMMON NORMALS: no acute distress GENERAL APPEARANCE: cooperative and comfortable ORIENTATION/CONSCIOUSNESS: Yes awake, Yes oriented to person, Yes oriented to place and Yes oriented to time HENMT: COMMON NORMALS: normocephalic, atraumatic, hearing grossly normal bilaterally, external ears normal, EAC's normal, TM's normal bilaterally, Normal nasal mucous membranes and turbinates present, moist oral mucous membranes and oropharynx normal HEAD & SCALP: normocephalic and atraumatic NOSE: Normal nasal mucous membranes and turbinates present EXTERNAL EAR: Yes external ears normal EXTERNAL AUDITORY CANAL: EAC's normal TYMPANIC MEMBRANE: TM's normal bilaterally Eye: COMMON NORMALS: Equal, round and reactive pupils present, EOMs intact bilaterally, conjunctivae normal and no scleral icterus CONJUNCTIVA: Yes conjunctivae normal PUPIL: Yes Equal, round and reactive pupils present Neck/C-Spine: COMMON NORMALS: no JVD Resp: COMMON NORMALS: normal respiratory effort, No retractions, No use of accessory muscles and clear to auscultation bilaterally AUSCULTATION: clear to auscultation bilaterally Cardio: COMMON NORMALS: no JVD, regular rate, regular rhythm and No murmurs present (Cardio) RATE: regular rate RHYTHM: regular rhythm GI: COMMON NORMALS: Soft to palpation and No hepatosplenomegaly present AUSCULTATION: Yes normoactive bowel sounds PALPATION: Yes Soft to palpation, No Tenderness to palpation present (GI), No Guarding due to palpation present (GI) and Yes No hepatosplenomegaly present Extremity: COMMON NORMALS: normal to inspection, capillary refill normal, no clubbing, cyanosis or edema, no calf tenderness and no pedal edema Neuro: SENSORIUM/ORIENTATION: Yes oriented to person, Yes oriented to place and Yes oriented to time Skin: COMMON NORMALS: no rashes or lesions noted GENERAL SKIN EXAM: no rashes or lesions noted Course Vital Signs: Vital signs: Vital Signs Temperature 98.2 F 07/01/21 21:17 Pulse Rate 79 07/01/21 21:17 Respiratory Rate 16 07/01/21 21:17 Blood Pressure 119/82 07/01/21 21:17 Pulse Oximetry 100 07/01/21 21:17 MDM - General Adult MDM Narrative: Medical decision making narrative: Care signed out to Dr. Bello at change of shift see his note for final diagnosis and disposition. Lab Data: Labs: Lab Results 07/01/21 07/01/21 07/01/21 18:10 18:10 19:10 WBC 8.8 10^3/uL 10^3/ uL (4.0-10.0) RBC 4.30 10^6/uL 10^6 /uL (4.1-5.3) Hgb 12.3 g/dL g/dL (11.5-15.3) Hct 37.6 % % (37.0-47.0) MCV 87.4 fl fl (81-99) MCH 28.6 pg pg (28.0-34.0) MCHC 32.7 g/dL g/dL (30.0-36.0) RDW 14.0 % % (12.1-15.1) Plt Count 365 10^3/cmm 10^3 /cmm (130-400) MPV 9.1 fL fL (7.4-10.4) Neut % (Auto) 65.6 % % Lymph % (Auto) 25.9 % % [place] % (Auto) 5.2 % % Eos % (Auto) 2.2 % % Baso % (Auto) 0.2 % % Neut # (Auto) 5.75 10^3/uL 10^3 /uL (1.8-7.7) Lymph # (Auto) 2.3 10^3/uL 10^3/ uL (0.8-4.8) [place] # (Auto) 0.5 10^3/uL 10^3/ uL (0.2-0.9) Eos # (Auto) 0.2 10^3/uL 10^3/ uL (0.0-0.8) Baso # (Auto) 0.0 10^3/uL 10^3/ uL (0.0-0.1) Nucleated RBC % (a uto) 0 % % Nucleated RBCs # 0.0 /100WBC /100W BC Sodium 145 mmol/L mmol/L (136-145) Potassium 4.0 mmol/L mmol/L (3.5-5.1) Chloride 108 mmol/L H mmol /L (98-107) Carbon Dioxide 24 mmol/L mmol/L (22-29) Anion Gap 17.0 (5-19) BUN 8 mg/dL mg/dL (6-20) Creatinine 0.4 mg/dL L mg/dL (0.5-0.9) GFR Calculation 192.9 mL/min H mL /min (90-130) Glucose 81 mg/dL mg/dL (65-115) Calculated Osmolal ity 297 mOsm/kg H mOs m/kg (285-295) Calcium 9.5 mg/dL mg/dL (8.5-10.5) Total Bilirubin 0.2 mg/dL mg/dL (0.15-1.2) AST 29 U/L U/L (0-32) ALT 15 U/L U/L (0-33) Alkaline Phosphata se 130 IU/L H IU/L (35-105) Total Protein 7.0 g/dL g/dL (6.6-8.7) Albumin 3.7 g/dL g/dL (3.5-5.2) Globulin 3.3 g/dL g/dL (1.3-4.6) Urine Color Yellow (Yellow) Urine Appearance Clear (CLEAR) Urine pH 7 (5-7) Ur Specific Gravit y 1.005 (1.005-1.030) Urine Protein Neg (Negative) Urine Glucose (UA) Norm (Normal) Urine Ketones Negative (Negative) Urine Blood 3+ H (Negative) Urine Nitrate Negative (Negative) Urine Bilirubin Neg (Negative) Urine Urobilinogen Norm mg/dL mg/dL (Negative) Ur Leukocyte Cierra ase Negative (Negative) Urine RBC 25-40 /hpf H /hpf (0-2) Urine WBC 0-4 /hpf H /hpf (0-5) Ur Squamous Epith Cells 15-25 /hpf H /hpf (0-5) Amorphous Sediment Not Reportable Urine Bacteria 1+ /hpf H /hpf (NONE) Discharge Plan Discharge Patient Disposition: Home Clinical Impression: Hypertension Qualifiers: Hypertension type: primary hypertension Qualified Code(s): I10 - Essential (primary) hypertension Condition: Stable Prescriptions: No Action docusate sodium 100 mg capsule 100 mg PO BID PRNRF: 0 ibuprofen 800 mg tablet 800 mg PO TID PRNRF: 0 Lanolin (HPA) 100 % Cream 1 applic topical PRN PRN (Reason: breast care) Qty: 7 RF: 0 oxycodone-acetaminophen 5-325 mg Tablet 1 - 2 tab PO Q4H PRN (Reason: Moderate To Severe Pain) Qty: 28 RF: 0 Discharge Orders: Discharge ED (Routine); Ordered 07/01/21 Ordered By: Jamie Bello Referrals: Kristie Trevizo APN, SAUL [Primary Care Provider] - 4-7 days (as scheduled) Patient Instructions: Hypertension (ED), Opioid Safety Activity Restrictions/Additional Instructions: Continue to check your blood pressures twice daily. If pressures remain above 150/90, start the medication you were prescribed. See your doctor Sunday as scheduled. They may want to check your urine again for protein. Return for any symptomatic hypertension such as chest discomfort, trouble breathing, headaches, dizziness, other concerning symptoms. 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 PMD: none PCOS (polycystic ovarian syndrome) Diagnosed at the age of 22 based on irregular cycles and signs of elevated testosterone Surgical History No history of previous surgery Family History Grandmother Stroke Paternal Heart disease paternal Denies family history of Colon cancer Ovarian cancer Diabetes Hyperlipidemia Breast cancer Hypertension Uterine cancer Thyroid condition Course Vital Signs: Vital signs: Vital Signs Temperature 98.2 F 07/01/21 21:17 Pulse Rate 79 07/01/21 21:17 Respiratory Rate 16 07/01/21 21:17 Blood Pressure 119/82 07/01/21 21:17 Pulse Oximetry 100 07/01/21 21:17 MDM - General Adult MDM Narrative: Medical decision making narrative: 25-year-old female checked out to me by Dr. Horowitz at shift change. This young lady has had some problems with blood pressures. She is 1 week . She did not have -induced hypertension or preeclampsia. She has had no lower extremity swelling. Her urine protein is still negative. Her laboratory is benign. Pressure has come down here after labetalol. She has been attempting to breast-feed. She will be placed on propranolol for hypertension control if needed. She will check her blood pressures twice a day. If she returns to normal blood pressure kate, medication can be stopped. She has an appointment on Sunday with her manager search. I suggested her urine be checked again for protein at that point. Lab Data: Labs: Lab Results 07/01/21 07/01/21 07/01/21 18:10 18:10 19:10 WBC 8.8 10^3/uL 10^3/ uL (4.0-10.0) RBC 4.30 10^6/uL 10^6 /uL (4.1-5.3) Hgb 12.3 g/dL g/dL (11.5-15.3) Hct 37.6 % % (37.0-47.0) MCV 87.4 fl fl (81-99) MCH 28.6 pg pg (28.0-34.0) MCHC 32.7 g/dL g/dL (30.0-36.0) RDW 14.0 % % (12.1-15.1) Plt Count 365 10^3/cmm 10^3 /cmm (130-400) MPV 9.1 fL fL (7.4-10.4) Neut % (Auto) 65.6 % % Lymph % (Auto) 25.9 % % [place] % (Auto) 5.2 % % Eos % (Auto) 2.2 % % Baso % (Auto) 0.2 % % Neut # (Auto) 5.75 10^3/uL 10^3 /uL (1.8-7.7) Lymph # (Auto) 2.3 10^3/uL 10^3/ uL (0.8-4.8) [place] # (Auto) 0.5 10^3/uL 10^3/ uL (0.2-0.9) Eos # (Auto) 0.2 10^3/uL 10^3/ uL (0.0-0.8) Baso # (Auto) 0.0 10^3/uL 10^3/ uL (0.0-0.1) Nucleated RBC % (a uto) 0 % % Nucleated RBCs # 0.0 /100WBC /100W BC Sodium 145 mmol/L mmol/L (136-145) Potassium 4.0 mmol/L mmol/L (3.5-5.1) Chloride 108 mmol/L H mmol /L (98-107) Carbon Dioxide 24 mmol/L mmol/L (22-29) Anion Gap 17.0 (5-19) BUN 8 mg/dL mg/dL (6-20) Creatinine 0.4 mg/dL L mg/dL (0.5-0.9) GFR Calculation 192.9 mL/min H mL /min (90-130) Glucose 81 mg/dL mg/dL (65-115) Calculated Osmolal ity 297 mOsm/kg H mOs m/kg (285-295) Calcium 9.5 mg/dL mg/dL (8.5-10.5) Total Bilirubin 0.2 mg/dL mg/dL (0.15-1.2) AST 29 U/L U/L (0-32) ALT 15 U/L U/L (0-33) Alkaline Phosphata se 130 IU/L H IU/L (35-105) Total Protein 7.0 g/dL g/dL (6.6-8.7) Albumin 3.7 g/dL g/dL (3.5-5.2) Globulin 3.3 g/dL g/dL (1.3-4.6) Urine Color Yellow (Yellow) Urine Appearance Clear (CLEAR) Urine pH 7 (5-7) Ur Specific Gravit y 1.005 (1.005-1.030) Urine Protein Neg (Negative) Urine Glucose (UA) Norm (Normal) Urine Ketones Negative (Negative) Urine Blood 3+ H (Negative) Urine Nitrate Negative (Negative) Urine Bilirubin Neg (Negative) Urine Urobilinogen Norm mg/dL mg/dL (Negative) Ur Leukocyte Cierra ase Negative (Negative) Urine RBC 25-40 /hpf H /hpf (0-2) Urine WBC 0-4 /hpf H /hpf (0-5) Ur Squamous Epith Cells 15-25 /hpf H /hpf (0-5) Amorphous Sediment Not Reportable Urine Bacteria 1+ /hpf H /hpf (NONE) Discharge Plan Discharge Patient Disposition: Home Clinical Impression: Hypertension Qualifiers: Hypertension type: primary hypertension Qualified Code(s): I10 - Essential (primary) hypertension Condition: Stable Prescriptions: No Action docusate sodium 100 mg capsule 100 mg PO BID PRNRF: 0 ibuprofen 800 mg tablet 800 mg PO TID PRNRF: 0 Lanolin (HPA) 100 % Cream 1 applic topical PRN PRN (Reason: breast care) Qty: 7 RF: 0 oxycodone-acetaminophen 5-325 mg Tablet 1 - 2 tab PO Q4H PRN (Reason: Moderate To Severe Pain) Qty: 28 RF: 0 Discharge Orders: Discharge ED (Routine); Ordered 07/01/21 Ordered By: Jamie Bello Referrals: Kristie Trevizo APN, SAUL [Primary Care Provider] - 4-7 days (as scheduled) Patient Instructions: Hypertension (ED), Opioid Safety Activity Restrictions/Additional Instructions: Continue to check your blood pressures twice daily. If pressures remain above 150/90, start the medication you were prescribed. See your doctor Sunday as scheduled. They may want to check your urine again for protein. Return for any symptomatic hypertension such as chest discomfort, trouble breathing, headaches, dizziness, other concerning symptoms. Coding Level of Care Code ED Forestry Tree Pruner for Dante Fwd Exam Comprehensive
[2021-07-01 18:56] VITALS: BP 149/97
[2021-07-01 19:17] LABS: Basophils % 0.2 %; Eosinophils # 0.2 10^3/uL (0.0-0.8); Eosinophils % 2.2 %; Hematocrit 37.6 % (37.0-47.0); Hemoglobin 12.3 g/dL (11.5-15.3); Lymphocytes # 2.3 10^3/uL (0.8-4.8); Lymphocytes % 25.9 %; Mean Corpuscular HGB Conc 32.7 g/dL (30.0-36.0); Mean Corpuscular Hemoglobin 28.6 pg (28.0-34.0); Mean Corpuscular Volume 87.4 fl (81-99); Mean Platelet Volume 9.1 fL (7.4-10.4); Monocytes # 0.5 10^3/uL (0.2-0.9); Monocytes % 5.2 %; Neutrophils # 5.75 10^3/uL (1.8-7.7); Neutrophils % 65.6 %; Nucleated Red Blood Cells % 0 %; Platelet Count 365 10^3/cmm (130-400); White Blood Count 8.8 10^3/uL (4.0-10.0)
[2021-07-01 19:34] LABS: Alanine Aminotransferase 15 U/L (0-33); Albumin Level 3.7 g/dL (3.5-5.2); Alkaline Phosphatase 130 IU/L (35-105); Aspartate Amino Transferase 29 U/L (0-32); Blood Urea Nitrogen 8 mg/dL (6-20); Calcium 9.5 mg/dL (8.5-10.5); Carbon Dioxide 24 mmol/L (22-29); Chloride 108 mmol/L (98-107); Globulin 3.3 g/dL (1.3-4.6); Glomerular Filtration Rate 192.9 mL/min (90-130); Glucose 81 mg/dL (65-115); Osmolality Calculated 297 mOsm/kg (285-295); Sodium 145 mmol/L (136-145); Total Bilirubin 0.2 mg/dL (0.15-1.2)
[2021-07-01 19:47] LABS: Specific Gravity, Urine 1.005 (1.005-1.030); Urine Appearance Clear (CLEAR); Urine Color Yellow (Yellow); pH Urine 7 (5-7)
[2021-07-01 19:48] LABS: Add Urine Microscopic? YES; Bilirubin Urine Neg (Negative); Blood Urine 3+ (Negative); Glucose Urine UA Norm (Normal); Ketones Urine Negative (Negative); Leukocyte Esterase Urine Negative (Negative); Nitrate Urine Negative (Negative); Protein Urine Neg (Negative); Urobilinogen Urine Norm (Negative)
[2021-07-01 19:53] LABS: Add Urine Culture? No; Bacteria Urine 1+ /hpf; RBC Urine 25-40 /hpf (0-2); Squamous Epithelial Cell Urine 15-25 /hpf (0-5); WBC Urine 0-4 /hpf (0-5)
[2021-07-01 21:17] VITALS: BP 119/82; PULSE 79; RESP 16; TEMP 36.8; O2SAT 100
== END 2021-07-01 21:10 | disposition home or self-care (01) ==
PROVIDERS: Family Medicine; Emergency Provider Emergency Medicine; PCP Nurse Practitioner Women's Health
DX: I10 Essential (primary) hypertension (principal)
CPT/HCPCS: 71045; 80053; 81001; 85025; 93005; 99283

== ENCOUNTER → 2021-08-05 10:34 | Outpatient (BNVA) | payer OTHER, MEDICAID, SELFPAY | PROVIDERS: PCP Nurse Practitioner Women's Health; Visit Provider Obstetrics & Gynecology | DX: Z12.4 Encounter for screening for malignant neoplasm of cervix (principal) | CPT/HCPCS: 88175 ==

== ENCOUNTER 2021-10-05 13:00 | Outpatient (CLI) | payer OTHER, MEDICAID, SELFPAY ==
--- NOTE | 2021-10-05 13:07 | ECG_ITS ---
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 Measurements Intervals [place] Rate: 78 P: 35 [place]: 156 QRS: 3 QRSD: 101 T: 15 QT: 364 QTc: 416 Interpretive Statements SINUS RHYTHM INCOMPLETE RIGHT BUNDLE BRANCH BLOCK [90+ ms QRS DURATION, TERMINAL R IN V1/V2, 40+ ms S IN I/aVL/V4/V5/V6] VOLTAGE CRITERIA FOR LVH [MEETS CRITERIA IN ONE OF: R(aVL), S(V1), R(V5), R(V5/V6)+S(V1)] Compared to ECG 07/01/2021 16:56:46 Sinus arrhythmia no longer present Electronically Signed On 10-05-2021 19:38:53 INSOLVENCY PRACTITIONER by Jovita Hua M.D. [id number]
== END 2021-10-05 13:01 | disposition home or self-care (01) ==
PROVIDERS: Visit Provider Obstetrics & Gynecology
DX: O16.5 Unspecified maternal hypertension, complicating the puerperium (principal); I45.19 Other right bundle-branch block
CPT/HCPCS: 93005

== ENCOUNTER → 2022-04-04 13:29 | Outpatient (BNVA) | payer OTHER, MEDICAID, SELFPAY | PROVIDERS: Visit Provider Obstetrics & Gynecology | DX: R39.9 Unspecified symptoms and signs involving the genitourinary system (principal) | CPT/HCPCS: 81000; 87086 ==

== ENCOUNTER → 2022-08-08 16:58 | Outpatient (BNVA) | payer OTHER, MEDICAID, SELFPAY | PROVIDERS: Visit Provider Nurse Practitioner Family | DX: E66.9 Obesity, unspecified (principal); Z86.32 Personal history of gestational diabetes; E28.2 Polycystic ovarian syndrome; E88.81 Metabolic syndrome and other insulin resistance | CPT/HCPCS: 80053; 80061; 83036; 84443 ==

== ENCOUNTER → 2023-01-25 07:32 | Day surgery (SDC) | payer OTHER, SELFPAY ==
[2023-01-24 09:37] VITALS: BMI 26.6
[2023-01-25] VITALS (11 sets, daily range): BP systolic 96–141; BP diastolic 54–91; PULSE 82–112; RESP 16–24; TEMP 36.1–37.1; O2SAT 95–100
[2023-01-25] MEDS: sodium chloride 0.9% 1,000 ML 30 ML IV (07:55)
[2023-01-25 08:19] LABS: OR HCG Qualitative Urine Negative (Negative)
--- NOTE | 2023-01-25 08:38 | ANES.PREANE2 ---
Pre-Anesthetic Assessment Height/Weight: Height 1.6 m Weight 70.307 kg Temp Pulse Resp BP Pulse Ox O2 Del Method 97.9 F 102 H 18 134/91 96 Room Air 01/25/23 07:46 01/25/23 07:46 01/25/23 07:46 01/25/23 07:46 01/25/23 07:46 01/25/23 07:46 Preop Diagnosis: Tonsillar hypertrophy with asymmetry right side great than left. Operation Date: 01/25/23 09:20 Proposed Procedures p 76574 - tonsillectomy , J35.8, J35.8(Not Applicable) - Cipriano Trammell MD Familial anesthetic complications: None Was Beta Otf taken within 24 hours: N/A Was Clonidine taken within 24 hours: N/A Last intake: Intake Last Liquid Date 01/24/23 Last Liquid Time 21:30 Last Solid Date 01/24/23 Last Solid Time 21:30 Social No alcohol and No tobacco Airway Mallampati: Class II Dentition: full Metabolic hx gestational DM PCOS Metabolic Syndrome Anesthetic Plan ASA status: 2 Anesthesia: General Risk of > 500 ml blood loss (7ml/kg in children): No Medications/Allergies Home Medications Medication Instructions Recorded Confirmed Last Taken Type tirzepatide 10 mg/0.5 mL 10 mg (0.5 mL) SUBCUT .weekly 12 01/23/23 01/25/23 12/28/22 Rx subcutaneous pen injector weeks #6 mL (Mounjaro) Allergies Allergy/AdvReac Type Severity Reaction Status Date / Time No Known Allergies Allergy Verified 01/25/23 07:40 Current Medications Generic Name Dose Route Start Last Admin Trade Name Freq PRN Reason Stop Dose Admin Sodium Chloride 1,000 mls @ 30 mls/hr 01/25/23 07:45 01/25/23 07:55 Sodium Chloride 0.9% IV 01/26/23 07:44 30 mls/hr .Q24H FLORIN Administration PFSH Anesthesia Medical History Infertility 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 PMD: Jessi Shi NP PCOS (polycystic ovarian syndrome) Diagnosed at the age of 22 based on irregular cycles and signs of elevated testosterone Surgical History Previous delivery affecting , antepartum 06/24/2021 ---primary low transverse delivery for arrest of labor by Dr. [place] [facility] [place] Family History Grandmother Stroke Paternal Heart disease paternal Denies family history of Colon cancer Ovarian cancer Diabetes Hyperlipidemia Breast cancer Hypertension Uterine cancer Thyroid condition Social History Substance/Drug Use: never Data Anesthesia Cardiac Studies: No Data to Display
--- NOTE | 2023-01-25 08:51 | W.PM.OPSUD ---
Surgery/Procedure H&P Update DATE OF PROCEDURE: January 25, 2023 DATE H&P PERFORMED: 01/15/23 H&P UPDATE INFORMATION: I have reviewed H&P completed within last 30 days, I have examined patient prior to procedure and No changes to prior documentation CHANGES TO PREVIOUS DOCUMENTATION: No changes PREOP DIAGNOSIS: Tonsillar hypertrophy with asymmetry right side great than left. PRIMARY INDICATION FOR PROCEDURE: Tonsillar hypertrophy with asymmetry right side greater than the left. PLANNED PROCEDURE: Operation Date: 01/25/23 09:20 Proposed Procedures p 13115 - tonsillectomy , J35.8, J35.8(Not Applicable) - Cipriano Trammell MD
[2023-01-25] MEDS: midazolam 1 mg/mL INJ 2 mL 2 MG IVP (09:01)
[2023-01-25] MEDS: ceFAZolin 2,000 MG in sodium chloride 0.9% (plus) 50 ML 100 MG IV (09:50)
[2023-01-25] MEDS: oxymetazoline 0.05% Nasal Spray 15 mL 2 SPRAY NOSTRIL-B (10:12)
--- NOTE | 2023-01-25 10:28 | P.OP_ITS ---
Operative Report Date of procedure: January 25, 2023 Pre-op diagnosis: Preop Diagnosis Tonsillar hypertrophy with asymmetry right side great than left. Post-op diagnosis: Same Post-op findings: Tonsil stones bilaterally. Irregular lobulated right tonsil enlarged compared to left. Procedure done: Tonsillectomy Implants: No implants Specimens removed/disposition: Tonsils Pathology: Tonsils sent fresh Surgeon: Cipriano Trammell MD Anesthesia: General Estimated blood loss: 10 mL Complications: No complications encountered Findings: Tonsils with stones bilaterally. Left tonsil smaller than right. Right tonsil lobulated and irregular. Brief History: 27-year-old female patient who has had a problem with a sensation in the throat causing her to cough and clear. She has asymmetry of the right tonsil with a lobulation extending medially. As result this patient is being brought to the operating room at this time to undergo tonsillectomy for biopsy purposes. The procedure its risks and complications were explained in detail in the office setting. These risks included bleeding bleeding as well as infection sore throat voice change nasal regurgitation regrowth need for additional treatment tongue numbness or taste sensation change referred pain to the ears neck soreness or stiffness bad breath and more serious risks associated with anesthesia. With these things understood informed consent was granted and witnessed. Procedure: Description of procedure: The patient was placed on the operating table in the supine position. Adequate general endotracheal tube anesthesia was obtained. She received Ancef IV for prophylaxis and Decadron to help with postoperative edema. A timeout was accomplished identifying the patient date of plan procedure allergies fire risk and medications given. With all in agreement the procedure continued. The table was rotated 90 degrees. The patient's head was dropped 15 degrees to the horizontal. Her eyes were taped shut and a head drape was applied in usual fashion. A [place] Arthur mouthgag was inserted over the endotracheal tube and tongue ensuring that the upper incisors were in the guard. This was then opened and suspended from a rolled towel placed on her chest. A red rubber catheter was inserted in the left nares and used to elevate the palate. Mirror examination of the nasopharynx revealed no adenoid tissue. Attention was turned to the tonsillectomy. A tenaculum was used to clamp the left tonsil and retracted towards the midline. Tonsil stone and debris formation was expressed from the crypts. The Coblator on ablation and coagulation modes was then used to dissected tonsil from its bed from a superior to inferior direction attaining hemostasis as the dissection proceeded. A similar procedure was then performed to remove the right tonsil. The right tonsil was more lobulated both medially and deep next to the musculature. There was no sign of abscess or active infection. After both tonsils were removed spot cauterization with the Coblator was used to obtain complete hemostasis. Then the area was irrigated with saline and finger manipulation and manipulation with the Yankauer suction was accomplished to ensure that bleeding was controll ed. Then the red rubber catheter was released and removed. There was some bleeding from the tip of the uvula and this was cauterized with the coagulation mode of the Coblator. The mouthgag was then released and the neck was massaged. The mouthgag was reopened. No bleeding was seen. The mouthgag was released and removed. The patient's throat was suctioned again. No bleeding was noted. Her head was returned to the upright position. Head drape and tape were removed. Patient was then returned to anesthesia for wake-up and extubation. She tolerated the procedure well had an estimated blood loss of 10 mL and arrived in recovery in stable condition.
[2023-01-25] MEDS: meperidine 50 mg/mL INJ 12.5 MG IVP (10:46)
[2023-01-25] MEDS: ondansetron 2 mg/ML SDV 2 mL 4 MG IVP ×2 (10:54→11:03)
[2023-01-25] MEDS: HYDROcodone-APAP 7.5-325 mg/15 mL UDC PO (11:28)
--- NOTE | 2023-01-25 13:21 | ANE.PACU2 ---
Inpatient post-anesthesia follow up: Airway intact: Yes Vital signs: Temperature 97.0 F Pulse Rate 83 Respiratory Rate 16 Blood Pressure 119/59 Pulse Oximetry 99 Oxygen Delivery Me thod Room Air Oxygen Flow Rate 6 Fraction of Inspir ed Oxygen Hydration adequate: Yes Nausea and vomiting: No Pain level: 1 Mental status: Baseline
[2023-01-26 13:47] LABS: Lymphoma Profile (BBPL) See Report
== END | disposition home or self-care (01) ==
PROVIDERS: Anesthesiology; Visit Provider Otolaryngology
PROC: (CPT 42826; principal; 2023-01-25 09:15)
DX: J35.8 Other chronic diseases of tonsils and adenoids (principal); J35.1 Hypertrophy of tonsils; E28.2 Polycystic ovarian syndrome
CPT/HCPCS: 42826; 81025; 84703; 88184; 88185; 88304; J0690; J1100; J1170; J2175; J2250; J2405; J2704; J2710; J3010; J3490; J7030

== ENCOUNTER → 2023-05-24 10:30 | Outpatient (BNVA) | payer OTHER, SELFPAY | PROVIDERS: Visit Provider Nurse Practitioner Family | DX: E28.2 Polycystic ovarian syndrome (principal); E66.9 Obesity, unspecified | CPT/HCPCS: 80053; 80061 ==

== ENCOUNTER → 2024-02-25 11:22 | Outpatient (BNVA) | payer OTHER, SELFPAY | PROVIDERS: Visit Provider Nurse Practitioner Women's Health | DX: Z12.4 Encounter for screening for malignant neoplasm of cervix (principal); Z86.32 Personal history of gestational diabetes; E28.2 Polycystic ovarian syndrome | CPT/HCPCS: 83036; 88175 ==

== ENCOUNTER → 2024-04-18 10:39 | Outpatient (BNVA) | payer OTHER, SELFPAY | PROVIDERS: Visit Provider Nurse Practitioner Family | DX: R53.83 Other fatigue (principal); E28.2 Polycystic ovarian syndrome; E66.9 Obesity, unspecified; Z86.32 Personal history of gestational diabetes; F52.0 Hypoactive sexual desire disorder | CPT/HCPCS: 80053; 80061; 82306; 82533; 82607; 82746; 84144; 84403; 84443; 85025; 85651; 86038; 86140; 86200; 86664; 86665 ==

== ENCOUNTER → 2024-06-24 15:27 | Outpatient (BNVA) | payer OTHER, SELFPAY | PROVIDERS: Visit Provider Nurse Practitioner Women's Health | DX: R39.9 Unspecified symptoms and signs involving the genitourinary system (principal) | CPT/HCPCS: 81000; 87086 ==

== ENCOUNTER 2024-07-23 10:59 | Outpatient (CLI) | payer OTHER, SELFPAY | END 2024-07-23 11:00 | disposition home or self-care (01) | LOC: SPT 11:02 | PROVIDERS: Visit Provider Podiatrist Foot & Ankle Surgery | DX: Z46.89 Encounter for fitting and adjustment of other specified devices (principal); S82.53XD Displaced fracture of medial malleolus of unspecified tibia, subsequent encounter for closed fracture with routine healing; S82.839D Other fracture of upper and lower end of unspecified fibula, subsequent encounter for closed fracture with routine healing; X58.XXXD Exposure to other specified factors, subsequent encounter | CPT/HCPCS: L1902 ==

== ENCOUNTER 2025-05-09 10:37 | Outpatient (CLI) | payer OTHER, SELFPAY ==
[2025-05-09 10:42] VITALS: RESP 16; BMI 36.3
[2025-05-09 10:46] VITALS: BP 133/76; PULSE 97
[2025-05-09 11:06] VITALS: BP 111/67; PULSE 99
== END 2025-05-09 11:18 | disposition home or self-care (01) ==
LOC: OPOB 10:37 → OBGYN 10:38
PROVIDERS: Visit Provider Family Medicine
DX: O24.419 Gestational diabetes mellitus in pregnancy, unspecified control (principal); Z3A.00 Weeks of gestation of pregnancy not specified
CPT/HCPCS: 59025

== ENCOUNTER 2025-05-16 13:35 | Outpatient (CLI) | payer OTHER, SELFPAY ==
[2025-05-16 13:40] VITALS: BP 138/67; PULSE 95
[2025-05-16 13:49] VITALS: RESP 16; BMI 36.6
[2025-05-16 13:55] VITALS: BP 139/71; PULSE 98
== END 2025-05-16 14:05 | disposition home or self-care (01) ==
LOC: OPOB 13:35 → OBGYN 13:36
PROVIDERS: Visit Provider Family Medicine
DX: O24.419 Gestational diabetes mellitus in pregnancy, unspecified control (principal); Z3A.00 Weeks of gestation of pregnancy not specified
CPT/HCPCS: 59025; 99211

== ENCOUNTER 2025-05-23 15:57 | Outpatient (CLI) | payer OTHER, SELFPAY ==
[2025-05-23 16:10] VITALS: BMI 36.7
[2025-05-23 16:14] VITALS: BP 119/74; PULSE 85
[2025-05-23 16:34] VITALS: BP 112/67; PULSE 89
== END 2025-05-23 17:00 | disposition home or self-care (01) ==
LOC: OPOB 16:00 → OBGYN 16:01
PROVIDERS: Visit Provider Family Medicine
DX: O24.419 Gestational diabetes mellitus in pregnancy, unspecified control (principal); Z3A.00 Weeks of gestation of pregnancy not specified
CPT/HCPCS: 59025

== ENCOUNTER 2025-05-26 05:04 | Inpatient (IN) | payer OTHER, SELFPAY ==
--- NOTE | 2025-04-29 10:09 | P.ANESASSM_ITS ---
Pre-Anesthetic Assessment Height/Weight: Height 1.63 m Operation Date: 05/26/25 07:20 Proposed Procedures p Section Repeat(Not Applicable) - Audi Abdi MD Familial anesthetic complications: None Social No alcohol and No tobacco Exam alert, oriented x 3, clear to auscultation bilaterally and regular rate & rhythm Airway Mallampati: Class I Dentition: other (crowns) Metabolic gestational DM Anesthetic Plan ASA status: 3 Anesthesia: Regional (specify below) Risk of > 500 ml blood loss (7ml/kg in children): Yes, adequate IV access and fluids planned Medications/Allergies Home Medications ?Medication ?Instructions ?Recorded ?Confirmed ?Last Taken ?Type azithromycin 250 mg tablet See Rx Instructions PO .COM PLEX #6 09/18/24 Unknown Rx (Zithromax Z-Carlos) tabs Allergies Allergy/AdvReac Type Severity Reaction Status Date / Time No Known Allergies Allergy Verified 09/17/24 10:57 [facility] Anesthesia Medical History Infertility 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 PMD: Jessi Shi NP PCOS (polycystic ovarian syndrome) Diagnosed at the age of 22 based on irregular cycles and signs of elevated testosterone Surgical History Hx of tonsillectomy Previous delivery affecting , antepartum 06/24/2021 ---primary low transverse delivery for arrest of labor by Dr. Darden at [facility] [place] Family History Grandmother Stroke Paternal Heart disease paternal Denies family history of Colon cancer Ovarian cancer Diabetes Hyperlipidemia Breast cancer Hypertension Uterine cancer Thyroid disease Social History Smoking and tobacco/nicotine status: never used tobacco/nicotine
[2025-05-26] VITALS (66 sets, daily range): BP systolic 119–148; BP diastolic 61–88; PULSE 71–109; RESP 16; TEMP 35.7–36.7; O2SAT 90–100; BMI 36.6
[2025-05-26 05:56] LABS: Hematocrit 33.6 % (36-47); Hemoglobin 10.80 g/dL (11.27-16.99); Mean Corpuscular HGB Conc 32.1 g/dL (30-55); Mean Corpuscular Hemoglobin 27.6 pg (27-33); Mean Corpuscular Volume 85.9 fl (85-98); Nucleated Red Blood Cells % 0 %; Platelet Count 184 10^3/cmm (157-399); Red Blood Count 3.91 10^6/uL (3.85-5.65); White Blood Count 7.24 10^3/uL (3.29-11.43)
--- NOTE | 2025-05-26 06:11 | ANES.PREANE2 ---
Pre-Anesthetic Assessment Height/Weight: Height 5 ft 4 in Weight 213 lb Pulse BP O2 Del Method 109 H 128/88 Room Air 05/26/25 06:07 05/26/25 06:07 05/26/25 05:36 Preop Diagnosis: Repeat Operation Date: 05/26/25 07:20 Proposed Procedures p Section Repeat(Not Applicable) - Audi Abdi MD Was Beta Otf taken within 24 hours: N/A Was Clonidine taken within 24 hours: N/A Last intake: Intake Last Liquid Date 05/25/25 Last Liquid Time 21:00 Last Solid Date 05/25/25 Last Solid Time 18:30 Social No alcohol and No tobacco Exam alert, oriented x 3, clear to auscultation bilaterally and regular rate & rhythm Airway Submandibular: within normal limits Cervical ROM: within normal limits Mallampati: Class II Dentition: full Anesthetic Plan ASA status: 3 Anesthesia: Regional (specify below) Other: Patient here for repeat today Patient had a prior epidural with previous, for failure to progress at that time. Patient said everything went fine Gestational diabetes, diet-controlled Denies any cardiac or pulmonary issues No issues with baby that she knows of Labs reviewed today and acceptable for procedure Plan for routine with spinal anesthetic Medications/Allergies Home Medications ?Medication ?Instructions ?Recorded ?Confirmed ?Last Taken ?Type no.58-iron bisglycinate 1 cap PO DAILY 05/09/25 05/26/25 05/25/25 History 10 mg iron-folic acid 400 mcg capsule Allergies Allergy/AdvReac Type Severity Reaction Status Date / Time No Known Allergies Allergy Verified 05/26/25 05:13 Current Medications Generic Name Dose Route Start Last Admin Trade Name Freq PRN Reason Stop Dose Admin Sodium Chloride 1,000 mls @ 999 mls/hr 05/26/25 05:29 05/26/25 06:07 Sodium Chloride 0.9% IV 05/26/25 06:29 999 mls/hr .Q1H1M ONE Administration PFSH Anesthesia Medical History Infertility 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 PMD: Jessi Shi NP PCOS (polycystic ovarian syndrome) Diagnosed at the age of 22 based on irregular cycles and signs of elevated testosterone Surgical History Hx of tonsillectomy Previous delivery affecting , antepartum 06/24/2021 ---primary low transverse delivery [place] arrest [place] labor [place] [facility] [place] Family History Grandmother Stroke Paternal Heart disease paternal Denies family history of Colon cancer Ovarian cancer Diabetes Hyperlipidemia Breast cancer Hypertension Uterine cancer Thyroid disease Social History Smoking and tobacco/nicotine status: never used tobacco/nicotine Female Reproductive History : 2 Data Anesthesia 05/26/25 05:45 Short CBC 05/26/25 Range/Units 05:45 WBC 7.24 (3.29-11.43) 10^3/uL Hgb 10.80 L (11.27-16.99) g/dL Hct 33.6 L (36-47) % MCV 85.9 (85-98) fl Plt Count 184 (157-399) 10^3/cmm Neut % (Auto) 63.8 % Neut # (Auto) 4.61 (1.8-7.7) 10^3/uL
--- NOTE | 2025-05-26 06:48 | P.HP_ITS ---
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 Her due date is based on a first trimester ultrasound. The patient did not pass her glucose screen. Since that time she has had well-controlled diet-controlled gestational diabetes. We discussed options after having a previous section. After discussing the pros and cons of a versus section, she is agreed to proceed with a section. During her , we discussed the risks of bleeding, infection, and damage to intra-abdominal organs. She and her have no further questions and wished to proceed. 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 PMD: Jessi Shi NP PCOS (polycystic ovarian syndrome) Diagnosed at the age of 22 based on irregular cycles and signs of elevated testosterone Surgical History Hx of tonsillectomy Previous delivery affecting , antepartum 06/24/2021 ---primary low transverse delivery for arrest of labor by Dr. Darden at [facility] [place] Family History Grandmother Stroke Paternal Heart disease paternal Denies family history of Colon cancer Ovarian cancer Diabetes Hyperlipidemia Breast cancer Hypertension Uterine cancer Thyroid disease Social History Smoking and tobacco/nicotine status: never used tobacco/nicotine Other Female Reproductive History: Hx Age of Menarche: 12 Personal Safety: Do you feel safe at home: Yes Victim of physical abuse: No Victim of emotional abuse: No Victim of sexual abuse: No History History History 2 2 Term 1 0 Miscarriages/Ectopic 0 Living Children 1 Vitals/I&O/Wt Last Vital Signs Pulse 109 H 05/26/25 06:07 BP 128/88 05/26/25 06:07 O2 Del Method Room Air 05/26/25 05:36 Weight last 48 hrs Weight 213 lb Physical Exam 2 Const: COMMON NORMALS: patient oriented x3 and alert HENMT: COMMON NORMALS: moist oral mucous membranes HEAD & SCALP: normal to inspection Chest: COMMONS NORMALS: normal inspection of the chest Resp: COMMON NORMALS: clear to auscultation bilaterally AUSCULTATION: clear to auscultation bilaterally Cardio: COMMON NORMALS: regular rate and regular rhythm RATE: regular rate RHYTHM: regular rhythm GI: INSPECTION: Yes normal to inspection and Yes other (Gravid) Extremity: COMMON NORMALS: normal to inspection GENERAL: Yes edema (Trace) Neuro: COMMON NORMALS: patient oriented x3, moves all extremities and no sensory deficits noted SENSORIUM/ORIENTATION: Yes alert Psych: COMMON NORMALS: mental status grossly normal Skin: COMMON NORMALS: no rashes or lesions noted GENERAL SKIN EXAM: no rashes or lesions noted Data 05/26/25 05:45 Results Labs OB ([facility]): 2 Obstetrics 02/26/25 Hct, (36-47) 33.6 % L Today Hgb, (11.27-16.99) 10.80 g/dL L Today Plt Count, (157-399) 184 10^3/cmm Today TSH, (0.27-4.20) 2.67 uIU/mL 04/18/24 Hemoglobin A1c, (4.0-6.0) 5.1 % 02/25/24 Progesterone 14.29 ng/mL 04/18/24 Micro Urine Specimen 06/24/24 Pap Smear Interpret See note 02/25/24 A&P Assessment and plan 1. History of : We will proceed with section as scheduled. 2. 38 weeks gestation of : PDMP PDMP Reviewed: Not Reviewed Attestations 2 Medical Necessity Statement*: I anticipate routine and post care. Coding Level of Care Code Acute Code for Chg Fwd Diagnoses History of Z98.891 38 weeks gestation of Z3A.38
[2025-05-26] MEDS: citric acid-sodium citrate 30 mL UDC PO (07:01)
[2025-05-26] MEDS: metoclopramide 5 mg/mL SDV 2 mL 10 MG IVP (07:02)
[2025-05-26] MEDS: BUPivacaine 0.5% INJ 30 mL INJECTION (08:04)
[2025-05-26] MEDS: ceFAZolin 2,000 mg SDV 2000 MG IVP (08:05)
--- NOTE | 2025-05-26 08:29 | P.OP_ITS ---
Operative Report Date of procedure: May 26, 2025 Pre-op diagnosis: 29 year-old 2 para 1-0-0-1 with a history of section presenting for Post-op diagnosis: Status post low-transverse section Procedure done: Low-transverse section Specimens removed/disposition: 1. Female with a weight of 7 pounds 15 ounces and Apgars of 7, 9 2. Placenta with a three-vessel cord delivered intact Surgeon: Audi Abdi MD Estimated blood loss (mL): 600 Complications: None Procedure: The patient was brought back to the operating room where she was prepped and draped in usual sterile fashion. Anesthesia was found to be adequate. A lower transverse skin incision was then made with a #10 blade. I then dissected down to the underlying subcutaneous tissue until arriving at the prerectal fascia. The fascia was then nicked with the scalpel bilaterally. The fascial incisions were then carried laterally with Flower scissors. Attention was then turned to the superior aspect of the incision which was grasped with kochers and tented up away from the underlying rectus abdominis muscles. The muscles were then diss ected away from the fascia manually, and later with Flower scissors. Attention was then turned to the inferior aspect of the incision, and the fascia was dissected away from the underlying muscle in similar fashion. The rectus abdominis muscles were then spread manually. The peritoneum was entered manually. Excellent visualization of the uterus was noted. A lower transverse uterine incision was then made with a #10 blade. Upon arriving at the intrauterine cavity, the uterine incision was then extended manually. The infant was noted to be in vertex position. The baby was delivered without difficulty. After delivery of the head, the mouth and nose were suctioned at the site of the incision. There was no meconium. There was no nuchal cord. The cord was cut and clamped. The baby was then handed to Dr. Tomas and waiting nurse.. The placenta was removed intact. The uterus was externalized. The intrauterine cavity was cleansed of any remaining debris. The uterine incision was reapproximated in 2 layers. The first layer was performed with 0 Vicryl in a running locked stitch. The second layer was an imbricating stitch also using 0 Vicryl. The uterus was replaced into the a bdomen. The peritoneum was then irrigated with warm saline. I reexamined the uterine incision and found it to be hemostatic. The rectus abdominis muscles were then reapproximated using 0 Vicryl in a running stitch. The fascia was then reapproximated using 0 Vicryl in running stitch. The subcutaneous tissue was reapproximated using 0 Vicryl in a running stitch. The skin was reapproximated 4-0 Vicryl in a running subcuticular stitch. Steri-Strips were placed.. A sterile dressing was placed. All counts were correct x2. Both the mother and baby were in stable condition.
[2025-05-26] MEDS: PRENATAL VIT NO.130/IRON/FOLIC 1 EACH TABLET PO (11:38)
[2025-05-26] MEDS: HYDROcodone-acetaminophen 5-325 mg Tablet PO ×3 (13:00→22:12)
[2025-05-26 22:23] LABS: Hematocrit 32.7 % (36-47); Hemoglobin 10.40 g/dL (11.27-16.99); Mean Corpuscular HGB Conc 31.8 g/dL (30-55); Mean Corpuscular Hemoglobin 28.0 pg (27-33); Mean Corpuscular Volume 87.9 fl (85-98); Platelet Count 183 10^3/cmm (157-399); Red Blood Count 3.72 10^6/uL (3.85-5.65); White Blood Count 10.11 10^3/uL (3.29-11.43)
[2025-05-27] MEDS: HYDROcodone-acetaminophen 5-325 mg Tablet PO ×6 (01:55→23:56)
[2025-05-27 03:24] VITALS: BP 116/70; PULSE 75
[2025-05-27] MEDS: PRENATAL VIT NO.130/IRON/FOLIC 1 EACH TABLET PO (05:57)
--- NOTE | 2025-05-27 08:24 | P.PN_ITS ---
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 Her bleeding has been within normal limits. Her pain is well-controlled. She has been consistently taking her hydrocodone. Labor: Amniotic Membrane Status: Intact Monitor Mode: External C ontraction Pattern: Occasional Vitals/I&O/Wt Last Vital Signs Temp 98.1 F 05/26/25 18:38 Pulse 75 05/27/25 03:24 Resp 16 05/26/25 09:10 BP 116/70 05/27/25 03:24 Pulse Ox 98 05/26/25 12:57 O2 Del Method Room Air 05/26/25 09:10 05/26/25 05/27/25 05/27/25 22:59 06:59 14:59 Output Total 780 / 1505 Balance -780 / 695 Weight last 48 hrs Weight 213 lb Physical Exam 2 Narrative: She is in no acute distress Lungs are clear auscultation bilaterally Her heart has a regular rate and rhythm Her fundus is below the umbilicus and firm Her dressing is clean, dry and intact Her extremities have trace edema Urinary Catheter Management: Machuca Latex Free: Cath Placed During This Visit: yes, but has since been removed by the nurse Reason for Continuing Indwelling Catheter: Decision to DC Catheter Urinary Catheter Date of Insertion: 05/26/25 Urinary Catheter Time of Insertion: 07:15 Date Urinary Catheter Removed: 05/26/25 Time Urinary Catheter Discontinued: 16:50 Data 05/26/25 20:00 A&P Assessment and plan 1. Status post : Continue with routine care. 2. 38 weeks gestation of : 3. Gestational diabetes: PDMP PDMP Reviewed: Not Reviewed Attestations 2 Medical Necessity Statement*: I anticipate routine ltcs and post ltcs care Coding Level of Care Code Acute Code for Chg Fwd Diagnoses Status post Z98.891 38 weeks gestation of Z3A.38 Gestational diabetes O24.419
[2025-05-27 11:02] VITALS: BP 147/80; PULSE 91
[2025-05-27 13:08] VITALS: BP 124/65; PULSE 83
[2025-05-27 21:32] VITALS: BP 118/65; PULSE 90; TEMP 36.2
[2025-05-28 04:09] VITALS: BP 126/67; PULSE 78
[2025-05-28 04:10] VITALS: TEMP 35.9
[2025-05-28] MEDS: PRENATAL VIT NO.130/IRON/FOLIC 1 EACH TABLET PO (04:11)
[2025-05-28] MEDS: HYDROcodone-acetaminophen 5-325 mg Tablet PO ×2 (04:11→09:26)
--- NOTE | 2025-05-28 07:03 | PM.OBGYDC ---
Discharge Providers CASHIER SELF SERVICE GASOLINE Date of Admission: 05/26/25 05:04 Date of Discharge: 05/28/25 Attending Provider at Admission: Audi Abdi MD Attending Provider at Discharge: Audi Abdi MD Diagnoses at Discharge Discharge Diagnosis 1. Status post : 2. 38 weeks gestation of : 3. Insulin controlled gestational diabetes mellitus (GDM) in third trimester: Reason for Visit Reason for Visit: C Section Hospital Course Hospital Course The patient presented to the hospital for a repeat section at 38 weeks due to her gestational diabetes. The was unremarkable. Her course was also unremarkable. Her bleeding was within normal limits. Her pain was adequately controlled. There were no concerns. Information Peripartum Data: Delivery Method: Physical Exam Narrative: She is in no acute distress Lungs are clear auscultation bilaterally Her heart has a regular rate and rhythm Her fundus is below the umbilicus and firm Her dressing is clean, dry and intact Her extremities have trace edema Urinary Catheter Management: Machuca Latex Free: Cath Placed During This Visit: yes, but has since been removed by the nurse Reason for Continuing Indwelling Catheter: Decision to DC Catheter Urinary Catheter Date of Insertion: 05/26/25 Urinary Catheter Time of Insertion: 07:15 Date Urinary Catheter Removed: 05/26/25 Time Urinary Catheter Discontinued: 16:50 History History History 2 Term 2 0 Miscarriages/Ectopic 0 Living Children 2 Discharge Data Studies Completed and Pending Laboratory Results WBC 10.11 10^3/uL (3.29-11.43) 05/26/25 20:00 RBC 3.72 10^6/uL (3.85-5.65) L 05/26/25 20:00 Hgb 10.40 g/dL (11.27-16.99) L 05/26/25 20:00 Hct 32.7 % (36-47) L 05/26/25 20:00 MCV 87.9 fl (85-98) 05/26/25 20:00 MCH 28.0 pg (27-33) 05/26/25 20:00 MCHC 31.8 g/dL (30-55) 05/26/25 20:00 RDW 14.5 % (12.1-15.1) 05/26/25 20:00 Plt Count 183 10^3/cmm (157-399) 05/26/25 20:00 MPV 10.7 fL (7.4-10.4) H 05/26/25 20:00 Neut % (Auto) 63.8 % 05/26/25 05:45 Lymph % (Auto) 27.2 % 05/26/25 05:45 [place] % (Auto) 8.1 % 05/26/25 05:45 Eos % (Auto) 0.4 % 05/26/25 05:45 Baso % (Auto) 0.1 % 05/26/25 05:45 Neut # (Auto) 4.61 10^3/uL (1.8-7.7) 05/26/25 05:45 Lymph # (Auto) 2.0 10^3/uL (0.8-4.8) 05/26/25 05:45 [place] # (Auto) 0.6 10^3/uL (0.2-0.9) 05/26/25 05:45 Eos # (Auto) 0.0 10^3/uL (0.0-0.8) 05/26/25 05:45 Baso # (Auto) 0.0 10^3/uL (0.0-0.1) 05/26/25 05:45 Nucleated RBC % (auto) 0 % 05/26/25 05:45 Nucleated RBCs # 0.0 /100WBC 05/26/25 05:45 Blood Type O Positive 05/26/25 05:45 Rho(D) Type Rh positive 05/26/25 05:45 Antibody Screen Negative 05/26/25 05:45 Vitals Last Vital Signs Temp 96.6 F L 05/28/25 04:10 Pulse 78 05/28/25 04:09 Resp 16 05/26/25 09:10 BP 126/67 05/28/25 04:09 Pulse Ox 98 05/26/25 12:57 O2 Del Method Room Air 05/26/25 09:10 Results Labs OB ([facility]): Obstetrics US 02/26/25 Blood Type O Positive 05/26/25 Antibody Screen Negative 05/26/25 Hct, (36-47) 32.7 % L 05/26/25 Hgb, (11.27-16.99) 10.40 g/dL L 09/30/25 Rho(D) Type Rh positive 05/26/25 Plt Count, (157-399) 183 10^3/cmm 05/26/25 TSH, (0.27-4.20) 2.67 uIU/mL 04/18/24 Hemoglobin A1c, (4.0-6.0) 5.1 % 02/25/24 Progesterone 14.29 ng/mL 04/18/24 Micro Urine Specimen 06/24/24 Pap Smear Interpret See note 02/25/24 Discharge Plan Discharge Patient Disposition: Home Condition: Stable Prescriptions: New docusate sodium 100 mg Capsule 100 mg PO BID Qty: 30 0RF ibuprofen 800 mg Tablet 800 mg PO TID Qty: 45 0RF hydrocodone-acetaminophen 5-325 mg Tablet 1 tab PO Q6H PRN (Reason: Moderate To Severe Pain) Qty: 28 0RF Continued PNV no.58-iron bisgly-folic ac 10-400 mg-mcg Capsule 1 cap PO DAILY Discharge Order = DC NOW: Discharge Order (Routine); Ordered 05/28/25 Ordered By: Audi Abdi Referrals: Audi Abdi MD [Physician, Family Practice] Discharge Diet: Usual diet Discharge Activity: Limit activity as instructed Patient Instructions: Depression (DC), Opioid Safety (DC), Preeclampsia and Eclampsia After Delivery (GEN), Hemorrhage (DC), OB - [place], OB Discharge Report, OB Food/Drug Interaction Guide, OB Care at Home, Opioid Safety, Patient Portal & Estefania Instructions, Abnormal Bleeding Discharge Attestations CASHIER SELF SERVICE GASOLINE Time Spent in Discharge Care*: less than 30 min Status at Discharge: Cognitive status at discharge: cognitively intact, Behavioral status at discharge: cooperative, Coding Level of Care Code Acute Code for Chg Fwd Diagnoses Status post Z98.891 38 weeks gestation of Z3A.38 Insulin controlled gestational diabetes mellitus (GDM) in third trimester O24.414 Gestational diabetes mellitus control: insulin-controlled Trimester: third trimester
[2025-05-28 10:22] VITALS: BP 126/78; PULSE 86; RESP 16; TEMP 36.7; O2SAT 98
== END 2025-05-28 10:23 | disposition home or self-care (01) | DRG 788 ==
PROVIDERS: Admitting Provider Family Medicine; Visit Provider Family Medicine
PROC: 10D00Z1 Extraction of Products of Conception, Low, Open Approach (ICD-10-PCS; CPT 59514; principal; 2025-05-26 07:00)
DX: O34.211 Maternal care for low transverse scar from previous cesarean delivery (principal); N85.8 Other specified noninflammatory disorders of uterus; O99.284 Endocrine, nutritional and metabolic diseases complicating childbirth; E28.2 Polycystic ovarian syndrome; O24.420 Gestational diabetes mellitus in childbirth, diet controlled; Z3A.38 38 weeks gestation of pregnancy; Z37.0 Single live birth
CPT/HCPCS: 36415; 51702; 59025; 59409; 85025; 85027; 86850; 86900; 96374; 96376; 99211; J0690; J1200; J1885; J2274; J2405; J2765; J3010; J3490; J7030; J9999